=== PATIENT | female | born 1950 | race Caucasian/White ===

== ENCOUNTER 2018-01-03 08:00 | Outpatient (CLI) | payer OTHER, MEDICARE ==
[2018-01-03 12:34] LABS: BASOPHILS # (AUTO) 0.1 10^3/uL (0.0-0.1); BASOPHILS % (AUTO) 0.6 %; EOSINOPHILS # (AUTO) 0.2 10^3/uL (0.0-0.7); EOSINOPHILS % (AUTO) 2.1 %; HGB - HEMOGLOBIN 13.2 g/dL (12.0-16.0); LYMPHOCYTES # (AUTO) 2.9 10^3/uL (1.5-3.5); LYMPHOCYTES % (AUTO) 28.3 %; MEAN CORPUSCULAR HGB CONC 33.6 g/dL (32.0-36.0); MEAN CORPUSCULAR VOLUME 92.2 fL (81.0-99.0); MEAN PLATELET VOLUME 8.9 fL (7.9-10.8); MONOCYTES # (AUTO) 0.5 10^3/uL (0.0-1.0); MONOCYTES % (AUTO) 5.3 %; NEUTROPHILS # (AUTO) 6.5 10^3/uL (1.5-6.6); NEUTROPHILS % (AUTO) 63.7 %; PLT - PLATELET COUNT 284 10^3/uL (130-450); RED BLOOD COUNT 4.26 10^6/uL (4.20-5.40); WHITE BLOOD COUNT 10.3 x10^3/uL (4.8-10.8)
[2018-01-03 12:57] LABS: ALBUMIN 3.9 g/dL (3.2-5.5); ALBUMIN/GLOBULIN RATIO 1.1 (1.0-2.2); ALKALINE PHOSPHATASE 79 IU/L (42-121); ALT ALANINE AMINOTRANSFERASE 22 IU/L (10-60); AST ASPARTATE AMINOTRANSFERASE 18 IU/L (10-42); BILIRUBIN,TOTAL 0.3 mg/dL (0.2-1.0); BUN - BLOOD UREA NITROGEN 19 mg/dL (6-20); CARBON DIOXIDE - CO2 27 mmol/L (21-32); CHLORIDE 101 mmol/L (101-111); CHOL/HDL RATIO 4.4 (<4.4); CHOLESTEROL 235 mg/dL; CREATININE 0.6 mg/dL (0.4-1.0); GFR - MDRD 100 (>89); GLUCOSE 106 mg/dL (70-100); HDL CHOLESTEROL 54 mg/dL; LDL CHOLESTEROL,CALCULATED 153 mg/dL; LDL/HDL RATIO 2.8 (<4.4); SODIUM 138 mmol/L (135-145); TOTAL PROTEIN 7.4 g/dL (6.7-8.2); VLDL CHOLESTEROL 28 mg/dL
== END 2018-01-03 08:01 | disposition home or self-care (01) ==
LOC: LAB.WCP 08:00
PROVIDERS: ATTEND Family Medicine
DX: I10 Essential (primary) hypertension (principal); E78.5 Hyperlipidemia, unspecified
CPT/HCPCS: 36415; 80053; 80061; 83721; 85025

== ENCOUNTER 2018-04-19 08:00 | Outpatient (CLI) | payer OTHER, MEDICARE ==
[2018-04-19 12:32] LABS: BASOPHILS # (AUTO) 0.1 10^3/uL (0.0-0.1); BASOPHILS % (AUTO) 0.6 %; EOSINOPHILS # (AUTO) 0.3 10^3/uL (0.0-0.7); HGB - HEMOGLOBIN 12.8 g/dL (12.0-16.0); LYMPHOCYTES # (AUTO) 2.4 10^3/uL (1.5-3.5); LYMPHOCYTES % (AUTO) 26.2 %; MEAN CORPUSCULAR HEMOGLOBIN 30.8 pg (27.0-31.0); MEAN CORPUSCULAR HGB CONC 32.7 g/dL (32.0-36.0); MEAN CORPUSCULAR VOLUME 94.3 fL (81.0-99.0); MONOCYTES # (AUTO) 0.5 10^3/uL (0.0-1.0); MONOCYTES % (AUTO) 5.6 %; NEUTROPHILS # (AUTO) 5.8 10^3/uL (1.5-6.6); NEUTROPHILS % (AUTO) 64.6 %; PLT - PLATELET COUNT 290 10^3/uL (130-450); RED BLOOD COUNT 4.14 10^6/uL (4.20-5.40); RED CELL DISTRIBUTION WIDTH 13.5 % (12.0-15.0)
[2018-04-19 13:19] LABS: ALBUMIN 3.6 g/dL (3.2-5.5); ALBUMIN/GLOBULIN RATIO 1.1 (1.0-2.2); ALKALINE PHOSPHATASE 68 IU/L (42-121); ALT ALANINE AMINOTRANSFERASE 19 IU/L (10-60); AST ASPARTATE AMINOTRANSFERASE 14 IU/L (10-42); BILIRUBIN,TOTAL 0.9 mg/dL (0.2-1.0); BUN - BLOOD UREA NITROGEN 12 mg/dL (6-20); CALCIUM 8.6 mg/dL (8.5-10.3); CARBON DIOXIDE - CO2 29 mmol/L (21-32); CHLORIDE 105 mmol/L (101-111); CHOL/HDL RATIO 4.7 (<4.4); CHOLESTEROL 191 mg/dL; CREATININE 0.6 mg/dL (0.4-1.0); GFR - MDRD 100 (>89); GLUCOSE 105 mg/dL (70-100); HDL CHOLESTEROL 41 mg/dL; LDL CHOLESTEROL,CALCULATED 126 mg/dL; LDL/HDL RATIO 3.1 (<4.4); SODIUM 140 mmol/L (135-145); TOTAL PROTEIN 6.9 g/dL (6.7-8.2); VLDL CHOLESTEROL 24 mg/dL
== END 2018-04-19 23:59 | disposition home or self-care (01) ==
LOC: LAB.WCP 08:00
PROVIDERS: ATTEND Family Medicine
DX: E78.5 Hyperlipidemia, unspecified (principal); I10 Essential (primary) hypertension
CPT/HCPCS: 36415; 80053; 80061; 83721; 85025

== ENCOUNTER 2018-08-09 07:11 | Outpatient (CLI) | payer OTHER, MEDICARE ==
[2018-08-09 12:48] LABS: ALBUMIN/GLOBULIN RATIO 1.3 (1.0-2.2); ALKALINE PHOSPHATASE 80 IU/L (42-121); ALT ALANINE AMINOTRANSFERASE 21 IU/L (10-60); AST ASPARTATE AMINOTRANSFERASE 18 IU/L (10-42); BUN - BLOOD UREA NITROGEN 12 mg/dL (6-20); CALCIUM 9.3 mg/dL (8.5-10.3); CARBON DIOXIDE - CO2 28 mmol/L (21-32); CHLORIDE 101 mmol/L (101-111); CHOL/HDL RATIO 4.9 (<4.4); CHOLESTEROL 231 mg/dL; CREATININE 0.5 mg/dL (0.4-1.0); GFR - MDRD 123 (>89); GLUCOSE 103 mg/dL (70-100); HDL CHOLESTEROL 47 mg/dL; LDL CHOLESTEROL,CALCULATED 161 mg/dL; LDL/HDL RATIO 3.4 (<4.4); SODIUM 137 mmol/L (135-145); TOTAL PROTEIN 7.2 g/dL (6.7-8.2); VLDL CHOLESTEROL 23 mg/dL
[2018-08-09 12:53] LABS: BASOPHILS # (AUTO) 0.1 10^3/uL (0.0-0.1); BASOPHILS % (AUTO) 0.8 %; EOSINOPHILS # (AUTO) 0.2 10^3/uL (0.0-0.7); EOSINOPHILS % (AUTO) 2.7 %; HGB - HEMOGLOBIN 13.1 g/dL (12.0-16.0); LYMPHOCYTES # (AUTO) 2.2 10^3/uL (1.5-3.5); LYMPHOCYTES % (AUTO) 26.4 %; MEAN CORPUSCULAR HEMOGLOBIN 30.8 pg (27.0-31.0); MEAN CORPUSCULAR HGB CONC 33.8 g/dL (32.0-36.0); MEAN CORPUSCULAR VOLUME 91.3 fL (81.0-99.0); MONOCYTES # (AUTO) 0.4 10^3/uL (0.0-1.0); MONOCYTES % (AUTO) 5.4 %; NEUTROPHILS # (AUTO) 5.4 10^3/uL (1.5-6.6); NEUTROPHILS % (AUTO) 64.7 %; PLT - PLATELET COUNT 292 10^3/uL (130-450); RED BLOOD COUNT 4.26 10^6/uL (4.20-5.40); RED CELL DISTRIBUTION WIDTH 13.4 % (12.0-15.0); WHITE BLOOD COUNT 8.4 x10^3/uL (4.8-10.8)
== END 2018-08-09 07:12 | disposition home or self-care (01) ==
LOC: LAB.WCP 07:11
PROVIDERS: ATTEND Family Medicine
DX: I10 Essential (primary) hypertension (principal); E78.5 Hyperlipidemia, unspecified
CPT/HCPCS: 36415; 80053; 80061; 83721; 85025

== ENCOUNTER 2018-11-04 08:00 | Outpatient (CLI) | payer MEDICARE, OTHER ==
[2018-11-06 14:00] LABS: CLARITY,URINE CLOUDY (CLEAR); LEUKOCYTE ESTERASE, URINE NEGATIVE (NEGATIVE); NITRITE,URINE NEGATIVE (NEGATIVE); OCCULT BLOOD,URINE NEGATIVE (NEGATIVE); PH,URINE 5.5 PH (5.0-7.5); PROTEIN,URINE NEGATIVE (NEGATIVE); UROBILINOGEN,URINE 0.2 (NORMAL) E.U./dL (NORMAL)
[2018-11-06 14:01] LABS: AMORPHOUS SEDIMENT,UR Marked /LPF; BACTERIA,URINE None Seen /HPF (None Seen); BILIRUBIN,URINE NEGATIVE (NEGATIVE); GLUCOSE, URINE (UA) NEGATIVE (NEGATIVE); KETONES,URINE (UA) NEGATIVE (NEGATIVE); RBC,URINE 0-5 /HPF (0-5); SQUAMOUS EPITHELIAL CELL,UR FEW Squamous (<= Few)
== END 2018-11-04 23:59 ==
LOC: LAB.R 08:00
PROVIDERS: ATTEND Obstetrics & Gynecology
DX: N95.0 Postmenopausal bleeding (principal); R30.0 Dysuria
CPT/HCPCS: 81001; 87086

== ENCOUNTER 2018-11-06 08:00 | Outpatient (CLI) | payer MEDICARE, OTHER ==
[2018-11-06 12:18] LABS: BASOPHILS % (AUTO) 0.5 %; EOSINOPHILS # (AUTO) 0.2 10^3/uL (0.0-0.7); EOSINOPHILS % (AUTO) 2.7 %; HGB - HEMOGLOBIN 12.8 g/dL (12.0-16.0); LYMPHOCYTES # (AUTO) 2.5 10^3/uL (1.5-3.5); LYMPHOCYTES % (AUTO) 27.8 %; MEAN CORPUSCULAR HEMOGLOBIN 31.4 pg (27.0-31.0); MEAN CORPUSCULAR VOLUME 92.3 fL (81.0-99.0); MEAN PLATELET VOLUME 8.9 fL (7.9-10.8); MONOCYTES # (AUTO) 0.5 10^3/uL (0.0-1.0); MONOCYTES % (AUTO) 5.4 %; NEUTROPHILS # (AUTO) 5.7 10^3/uL (1.5-6.6); NEUTROPHILS % (AUTO) 63.6 %; PLT - PLATELET COUNT 265 10^3/uL (130-450); RED BLOOD COUNT 4.09 10^6/uL (4.20-5.40); RED CELL DISTRIBUTION WIDTH 13.8 % (12.0-15.0)
[2018-11-06 12:57] LABS: HB2 TOTAL 13.2 g/dL; HEMOGLOBIN A1C 0.65 g/dL; HEMOGLOBIN A1C % 6.7 % (4.6-6.2)
[2018-11-06 13:05] LABS: THYROID STIMULATING HORMONE 1.57 uIU/mL (0.34-5.60)
[2018-11-06 13:07] LABS: FREE T4 (FREE THYROXINE) 0.89 ng/dL (0.58-1.64)
== END 2018-11-06 23:59 ==
LOC: LAB.WCP 08:00
PROVIDERS: ATTEND Obstetrics & Gynecology
DX: E66.9 Obesity, unspecified (principal); E04.9 Nontoxic goiter, unspecified; N95.0 Postmenopausal bleeding
CPT/HCPCS: 36415; 82947; 83036; 84439; 84443; 85025

== ENCOUNTER 2018-11-27 15:24 | Outpatient (CLI) | payer MEDICARE, OTHER ==
--- NOTE | 2018-11-28 09:04 | Ultrasound Report ---
Reason: POSTMENOPAUSAL VAGINAL BLEEDING Procedure Date: 11/27/2018 Accession Number: [id number] / [id number] Procedure: US - Pelvic w/Transvaginal CPT Code: FULL RESULT: EXAM: PELVIC ULTRASOUND EXAM DATE: 11/27/2018 05:17 PM. CLINICAL HISTORY: Postmenopausal vaginal bleeding. COMPARISON: None. TECHNIQUE: Realtime transabdominal pelvic scan performed to identify the uterus and adnexa and as an overview of other pelvic structures, followed by transvaginal scan to provide greater detail of the uterus and adnexa, with static image documentation. FINDINGS: Uterus: 7.3 x 3.2 x 4.9 cm, volume 60.3 cc. Anteverted position. Normal overall size and echotexture. Masses: None. Endometrium: 6.2 mm. Mildly thickened for postmenopausal status. Cervix: Unremarkable. Right Ovary: Not seen transabdominally or transvaginally. Left Ovary: 1.5 x 0.7 x 1.0 cm, volume 0.56 cc. Normal echotexture and blood flow. Free Fluid: None. Other: None. IMPRESSION: 1. Mild thickening of the endometrial canal at 6 mm for a postmenopausal state. 2. Nonvisualization of the right ovary. RADIA
== END 2018-11-27 15:25 | disposition home or self-care (01) ==
LOC: DI 15:24
PROVIDERS: ATTEND Obstetrics & Gynecology
DX: N95.0 Postmenopausal bleeding (principal); R93.89 Abnormal findings on diagnostic imaging of other specified body structures
CPT/HCPCS: 76830; 76856

== ENCOUNTER 2018-11-29 07:30 | Outpatient (CLI) | payer MEDICARE, OTHER ==
--- NOTE | 2018-11-29 17:02 | Mammography Report ---
Reason: Procedure Date: 11/29/2018 Accession Number: [id number] / [id number] Procedure: SHAWN - Screening Mammo w/Christopher CPT Code: FULL RESULT: EXAM: Screening Mammo w/Christopher DATE: 11/29/2018 8:07 AM CLINICAL HISTORY: Routine screening. No personal history of breast cancer. Family history breast cancer in brother at age 30. TECHNIQUE: Bilateral CC and MLO views were obtained. COMPARISON: 04/18/2016 through 02/17/2011. FINDINGS: The breasts demonstrate diffuse fatty replacement bilaterally. Right breast: There is a 9 mm oval mass posterior inferior right breast either within the dermis or near the skin surface, 6:00 9 cm from nipple. There are no suspicious calcifications or areas of distortion. Left breast: There are no suspicious masses, calcifications or areas of distortion. IMPRESSION: Incomplete examination RECOMMENDATION: Right breast: 9 mm oval mass within or near the posterior inferior skin at 6:00, 9 cm from nipple. Incomplete. BI-RADS Category 0. Targeted ultrasound is recommended. Left breast: Negative. BI-RADS Category 1. Recommend annual screening mammography. Note: Given family history of breast cancer in a male relative, formal breast cancer risk assessment should be considered. BI-RADS CATEGORY 0: Incomplete examination STANDARD QUALIFYING STATEMENTS: 1. This examination was not reviewed with the aid of Computer-Aided Detection (CAD). 2. A negative or benign imaging report should not preclude biopsy if clinically suspicious findings are present. 3. Dense breasts may obscure an underlying neoplasm. 4. This examination was reviewed with the aid of 3D breast imaging (tomosynthesis).
== END 2018-11-29 07:31 | disposition home or self-care (01) ==
LOC: DI 07:30
DX: Z12.31 Encounter for screening mammogram for malignant neoplasm of breast (principal); R92.8 Other abnormal and inconclusive findings on diagnostic imaging of breast; Z80.3 Family history of malignant neoplasm of breast
CPT/HCPCS: 77063; 77067

== ENCOUNTER 2018-12-05 07:18 | Outpatient (CLI) | payer MEDICARE, OTHER ==
[2018-12-05 13:13] LABS: BASOPHILS # (AUTO) 0.2 10^3/uL (0.0-0.1); BASOPHILS % (AUTO) 1.6 %; EOSINOPHILS # (AUTO) 0.5 10^3/uL (0.0-0.7); EOSINOPHILS % (AUTO) 4.8 %; HGB - HEMOGLOBIN 13.5 g/dL (12.0-16.0); LYMPHOCYTES # (AUTO) 1.9 10^3/uL (1.5-3.5); LYMPHOCYTES % (AUTO) 19.8 %; MEAN CORPUSCULAR HEMOGLOBIN 31.2 pg (27.0-31.0); MEAN CORPUSCULAR HGB CONC 34.8 g/dL (32.0-36.0); MEAN CORPUSCULAR VOLUME 89.7 fL (81.0-99.0); MEAN PLATELET VOLUME 8.8 fL (7.9-10.8); MONOCYTES # (AUTO) 0.5 10^3/uL (0.0-1.0); MONOCYTES % (AUTO) 4.8 %; NEUTROPHILS # (AUTO) 6.7 10^3/uL (1.5-6.6); PLT - PLATELET COUNT 299 10^3/uL (130-450); RED BLOOD COUNT 4.33 10^6/uL (4.20-5.40); RED CELL DISTRIBUTION WIDTH 13.2 % (12.0-15.0); WHITE BLOOD COUNT 9.7 x10^3/uL (4.8-10.8)
[2018-12-05 14:10] LABS: ALBUMIN 3.9 g/dL (3.2-5.5); ALBUMIN/GLOBULIN RATIO 1.1 (1.0-2.2); ALKALINE PHOSPHATASE 70 IU/L (42-121); ALT ALANINE AMINOTRANSFERASE 22 IU/L (10-60); AST ASPARTATE AMINOTRANSFERASE 15 IU/L (10-42); BILIRUBIN,TOTAL 0.9 mg/dL (0.2-1.0); BUN - BLOOD UREA NITROGEN 14 mg/dL (6-20); CALCIUM 8.9 mg/dL (8.5-10.3); CARBON DIOXIDE - CO2 25 mmol/L (21-32); CHLORIDE 104 mmol/L (101-111); CHOL/HDL RATIO 4.7 (<4.4); CHOLESTEROL 206 mg/dL; CREATININE 0.6 mg/dL (0.4-1.0); GFR - MDRD 99 (>89); GLUCOSE 93 mg/dL (70-100); HDL CHOLESTEROL 44 mg/dL; LDL CHOLESTEROL,CALCULATED 145 mg/dL; LDL/HDL RATIO 3.3 (<4.4); SODIUM 136 mmol/L (135-145); TOTAL PROTEIN 7.4 g/dL (6.7-8.2); VLDL CHOLESTEROL 17 mg/dL
== END 2018-12-05 07:19 | disposition home or self-care (01) ==
LOC: LAB.WCP 07:18
PROVIDERS: ATTEND Family Medicine
DX: I10 Essential (primary) hypertension (principal); E78.5 Hyperlipidemia, unspecified
CPT/HCPCS: 36415; 80053; 80061; 83721; 85025

== ENCOUNTER 2018-12-11 12:31 | Outpatient (CLI) | payer MEDICARE, OTHER ==
--- NOTE | 2018-12-11 14:01 | Ultrasound Report ---
Reason: ABN MAMMO - RT SPEC VIEW US Procedure Date: 12/11/2018 Accession Number: [id number] / [id number] Procedure: US - Breast Unilateral Limited CPT Code: FULL RESULT: EXAM: Breast Unilateral Limited DATE: 12/11/2018 1:08 PM CLINICAL HISTORY: ABN MAMMO - RT SPEC VIEW US COMPARISON: None. TECHNIQUE: Targeted ultrasound was performed of the right breast in the area of clinical concern at 12 o'clock and 9 cm distance from the nipple. Color Doppler was employed as appropriate. FINDINGS: A 0.6 x 0.7 cm sebaceous cyst is identified with in the skin at the location of interest. There is increased through transmission and no internal vascularity by color Doppler and finding resides within the dermal layer with physical examination clearly congruent. The finding corresponds to the mammographic abnormality. IMPRESSION: Benign findings RECOMMENDATION: Recommend routine annual Screening mammography unless otherwise clinically indicated. BIRADS CATEGORY 2: Benign findings RADIA
== END 2018-12-11 12:32 | disposition home or self-care (01) ==
LOC: DI 12:31
PROVIDERS: ATTEND Family Medicine
DX: N63.10 Unspecified lump in the right breast, unspecified quadrant (principal); R92.8 Other abnormal and inconclusive findings on diagnostic imaging of breast
CPT/HCPCS: 76642

== ENCOUNTER 2018-12-31 09:55 | Outpatient (CLI) | payer MEDICARE, OTHER ==
[2018-12-31 10:15] LABS: BASOPHILS # (AUTO) 0.1 10^3/uL (0.0-0.1); BASOPHILS % (AUTO) 0.6 %; EOSINOPHILS # (AUTO) 0.6 10^3/uL (0.0-0.7); EOSINOPHILS % (AUTO) 5.4 %; HGB - HEMOGLOBIN 13.6 g/dL (12.0-16.0); LYMPHOCYTES # (AUTO) 2.5 10^3/uL (1.5-3.5); LYMPHOCYTES % (AUTO) 23.5 %; MEAN CORPUSCULAR HEMOGLOBIN 31.2 pg (27.0-31.0); MEAN CORPUSCULAR HGB CONC 34.4 g/dL (32.0-36.0); MEAN CORPUSCULAR VOLUME 90.7 fL (81.0-99.0); MEAN PLATELET VOLUME 8.3 fL (7.9-10.8); MONOCYTES # (AUTO) 0.5 10^3/uL (0.0-1.0); MONOCYTES % (AUTO) 4.5 %; NEUTROPHILS # (AUTO) 6.9 10^3/uL (1.5-6.6); PLT - PLATELET COUNT 297 10^3/uL (130-450); RED BLOOD COUNT 4.35 10^6/uL (4.20-5.40); RED CELL DISTRIBUTION WIDTH 12.7 % (12.0-15.0); WHITE BLOOD COUNT 10.5 x10^3/uL (4.8-10.8)
[2018-12-31 10:26] LABS: ALBUMIN 4.1 g/dL (3.2-5.5); ALBUMIN/GLOBULIN RATIO 1.1 (1.0-2.2); BILIRUBIN,TOTAL 0.8 mg/dL (0.2-1.0); CALCIUM 9.4 mg/dL (8.5-10.3); CREATININE 0.8 mg/dL (0.4-1.0); TOTAL PROTEIN 7.8 g/dL (6.7-8.2)
== END 2018-12-31 09:56 | disposition home or self-care (01) ==
LOC: LAB 09:55
PROVIDERS: ATTEND Obstetrics & Gynecology
DX: Z01.818 Encounter for other preprocedural examination (principal); N95.0 Postmenopausal bleeding
CPT/HCPCS: 36415; 80053; 85025; 86850; 86900; 86901; 93005

== ENCOUNTER 2019-01-01 07:50 | Day surgery (SDC) | payer OTHER, MEDICARE ==
[2019-01-01] MEDS ORDERED: LACTATED RINGERS 1,000 ML IV ONE (07:54)
--- NOTE | 2019-01-01 08:06 | ANESTHESIA ---
Pre-Anesthesia VS, & Labs - Diagnosis Post menopausal bleeding - Procedure D and C, Myosure hysteroscopy Height 5 ft 6 in - NPO Other (cOFFEE AT 0430) - Is Patient ?: No - Lab Results Lab results reviewed: Yes Home Medications and Allergies Home Medications: Ambulatory Orders Albuterol Sulfate [Proair Hfa Inhaler] 2 puffs INH Q4H PRN 12/23/18 Cholecalciferol (Vitamin D3) [Vitamin D3] 4,000 unit PO DAILY 12/23/18 Multivitamin [Multiple Vitamins] 1 each PO DAILY 12/23/18 Aspirin [Adult Low Dose Aspirin EC] 81 mg PO DAILY 02/29/16 Felodipine [Felodipine ER] 10 mg PO DAILY 02/29/16 Lisinopril 10 mg PO DAILY 02/29/16 Albuterol Sulfate [Proair Hfa Inhaler] 2 puffs INH Q4H PRN 12/23/18 Cholecalciferol (Vitamin D3) [Vitamin D3] 4,000 unit PO DAILY 12/23/18 Multivitamin [Multiple Vitamins] 1 each PO DAILY 12/23/18 Allergies/Adverse Reactions: Allergies Allergy/AdvReac Type Severity Reaction Status Date / Time No Known Drug Allergies Allergy Verified 02/29/16 15:02 Anes History & Medical History - Anesthetic History Anesthesia Complications: reports: No previous complications Family history of Anesthesia Complications: Denies Family history of Malignant Hyperthermia: Denies - Medical History Cardiovascular: reports: Hypertension Pulmonary: reports: Asthma (Uses inhaler prn), Other Gastrointestinal: reports: None Urinary: reports: None Neuro: reports: None Musculoskeletal: reports: Osteoarthritis Endocrine/Autoimmune: reports: Type 2 diabetes, Other Blood Disorders: reports: None Skin: reports: None Smoking Status: Former smoker Psychosocial: reports: No issues indicated - Surgical History General: Cholecystectomy, Colonoscopy, EGD, Other Gynecologic: section, Dilation and currettage, Other Exam General: Alert Dental: WNL Mouth Openin Fingerbreadth Neck Mobility: Normal Mallampati classification: III Thyromental Distance: greater than 6 cm Respiratory: Lungs clear Cardiovascular: Regular rate Neurological: Normal speech Mental/Cognitive Status: Alert/Oriented X3 Cognitive Status: Within normal limits Plan Anesthesia Type: General Consent for Procedure(s) Verified and Reviewed: Yes Code Status: Attempt Resuscitation ASA classification: 2-Mild systemic disease Is this case an emergency?: No
[2019-01-01] MEDS ORDERED: LIDOCAINE 1%-EPI 1:100000 30 ML MDV ONE (09:30)
[2019-01-01] MEDS ORDERED: LIDOCAINE MPF 1%-EPI 1:200000 30 ML VIAL SUBQ ONE (09:51)
[2019-01-01] MEDS ORDERED: LIDOCAINE-MPF 2% 5 ML VIAL IM ONE (10:21)
[2019-01-01] MEDS ORDERED: ONDANSETRON 4 MG/2 ML VIAL IVP ONE (10:21)
[2019-01-01] MEDS ORDERED: PROPOFOL 200 MG/20 ML VIAL IVP ONE (10:21)
[2019-01-01] MEDS ORDERED: HYDROmorphone 0.5 MG/0.5 ML SYRINGE IVP PRN (10:22)
[2019-01-01] MEDS ORDERED: oxyCODONE 5 MG TABLET PO PRN (10:22)
[2019-01-01] MEDS ORDERED: ONDANSETRON 4 MG/2 ML VIAL IVP PRN (10:22)
[2019-01-01] MEDS ORDERED: LORazepam 2 MG/ML VIAL IVP PRN (10:22)
[2019-01-01] MEDS ORDERED: KETOROLAC 15 MG/ML VIAL ONE (10:24)
--- NOTE | 2019-01-01 10:26 | OPERATIVE REPORT ---
Operative Report - General Procedure Date: 01/01/19 Planned Procedure: Hysterscopy with D&C Pre-Op Diagnosis: Post menopausel bleeding Procedure Performed: Hysterscopy with D&C Post Op Diagnosis: Endometrial Polyps - Procedure Note Primary Surgeon: Mustapha Ruvalcaba MD FACOG Anesthesia Provider: Garry Martines MD Anesthesia Technique: General LMA Pathology: endocervical currettings Endometrial polyps IV Fluids (mL): 300 Estimated Blood Loss (mL): 5 Indications: Post menopausel bleeding Findings: Uterus sounded to 7 cm Vaginal caliber was quite small at the [place] three endometrial polyps seen in the uterus Complications: None. fluid deficit 270 ml - Other Other Information/Narrative: #[id number]
--- NOTE | 2019-01-01 10:55 | OPERATIVE REPORT ---
DATE OF SERVICE: 01/01/2019 Physician: Mustapha Ruvalcaba MD PREOPERATIVE DIAGNOSIS: 1. Postmenopausal bleeding. POSTOPERATIVE DIAGNOSES 1. Postmenopausal bleeding. 2. Endometrial polyps. PROCEDURE: Hysteroscopy with resection of endometrial polyps. SURGEON: Mustapha Ruvalcaba M.D. ANESTHESIOLOGIST: Dr. Garry Martines M.D. ANESTHESIA: General via LMA. ESTIMATED BLOOD LOSS: Less than 5 mL. IV FLUIDS: 300 mL. FLUID DEFICIT: From the hysteroscopy was 270. FINDINGS: Upon entering the vagina this, the vaginal caliber was quite small at the apex of the vagina. The cervix appeared to be normal. The uterus sounded to 7 cm, and there were three distinct separate polyps noted in the endometrial cavity. One was attached anteriorly, one to the right lateral wall, and one higher up. Both fallopian orifices were seen. DESCRIPTION OF PROCEDURE: Following adequate general anesthesia via LMA, patient was placed in the dorsal lithotomy position in Gonsalo rustrups. She was positioned appropriately. At this point, she was prepped and draped in the usual fashion. A timeout was performed in which the patient was identified as well as concerns addressed. At this point, a speculum was placed in the vagina and was unable to be opened, so a pediatric speculum was finally placed, and was opened. The cervix was visualized, grasped with a single-tooth tenaculum. A Paracervical block with 1% lidocane with Epi. 10 mls total was injected. The uterus was then dilated up to a size 6 mm dilator. At this point, the endocervical canal was sharply curetted. The uterus was then sounded to 7 cm, and then the video hysteroscope was introduced. There were three small polyps noted on the right side of the uterus, one anterior, one posterior, and one from the uterine sidewall. These were all removed with the MyoSure. The bases were trimmed all the way down to the muscle. The endometrial cavity was biopsied as much as possible in all quadrants utilizing the MyoSure. There is no evidence of any bleeding. The patient tolerated this part of the procedure well. At this point, photographs were taken, and the remainder of the endometrial cavity appeared to be free of any polyps or disease. The hysteroscope was removed, the cervix released from the single-tooth tenaculum, and the speculum was also removed. The patient tolerated the procedure well and was taken to recovery in stable condition. Sponge and needle counts were correct. TD: 01/01/2019 10:41 SUSSY
[2019-01-01 11:01] VITALS: BP 147/72
== END 2019-01-01 07:51 | disposition home or self-care (01) ==
LOC: SDS 07:50
PROVIDERS: ATTEND Obstetrics & Gynecology
PROC: 0UDB8ZZ Extraction of Endometrium, Via Natural or Artificial Opening Endoscopic (ICD-10-PCS; 2019-01-01)
PROC: 0UB98ZZ Excision of Uterus, Via Natural or Artificial Opening Endoscopic (ICD-10-PCS; principal; 2019-01-01 09:15)
DX: N95.0 Postmenopausal bleeding (principal); N84.0 Polyp of corpus uteri; I10 Essential (primary) hypertension; J45.909 Unspecified asthma, uncomplicated; E11.9 Type 2 diabetes mellitus without complications; E66.9 Obesity, unspecified; Z87.891 Personal history of nicotine dependence
CPT/HCPCS: 58558; J7120

== ENCOUNTER 2019-01-13 15:54 | Outpatient (CLI) | payer MEDICARE, OTHER ==
--- NOTE | 2019-01-14 09:41 | XRAY Report ---
Reason: KNEE PAIN, LEFT Procedure Date: 01/13/2019 Accession Number: [id number] / [id number] Procedure: WCP - Knee 3 View LT CPT Code: FULL RESULT: EXAM: LEFT KNEE RADIOGRAPHY EXAM DATE: 01/13/2019 04:14 PM. CLINICAL HISTORY: KNEE PAIN, LEFT. COMPARISON: None. TECHNIQUE: 3 views. FINDINGS: Bones: Normal. No fractures or bone lesions. Joints: Osteophyte medial joint space with mild joint space narrowing. Spurring of the tibial spine. Osteophyte patellofemoral compartment with joint space narrowing. Small effusion. Possible loose body posteriorly Soft Tissues: Calcification along the patellar tendon insertion site on the tibia.. No soft tissue swelling. IMPRESSION: Moderate degenerative changes RADIA
== END 2019-01-13 15:55 | disposition home or self-care (01) ==
LOC: DI.WCP 15:54
PROVIDERS: ATTEND Family Medicine
DX: M17.12 Unilateral primary osteoarthritis, left knee (principal)

== ENCOUNTER 2019-01-14 07:44 | Outpatient (CLI) | payer MEDICARE, OTHER ==
[2019-01-14 13:36] LABS: BASOPHILS # (AUTO) 0.1 10^3/uL (0.0-0.1); BASOPHILS % (AUTO) 0.5 %; EOSINOPHILS # (AUTO) 0.3 10^3/uL (0.0-0.7); EOSINOPHILS % (AUTO) 2.8 %; HGB - HEMOGLOBIN 12.7 g/dL (12.0-16.0); LYMPHOCYTES # (AUTO) 2.3 10^3/uL (1.5-3.5); LYMPHOCYTES % (AUTO) 25.3 %; MEAN CORPUSCULAR HEMOGLOBIN 31.1 pg (27.0-31.0); MEAN CORPUSCULAR HGB CONC 33.8 g/dL (32.0-36.0); MEAN PLATELET VOLUME 8.9 fL (7.9-10.8); MONOCYTES # (AUTO) 0.5 10^3/uL (0.0-1.0); MONOCYTES % (AUTO) 5.6 %; NEUTROPHILS % (AUTO) 65.8 %; PLT - PLATELET COUNT 288 10^3/uL (130-450); RED BLOOD COUNT 4.07 10^6/uL (4.20-5.40); WHITE BLOOD COUNT 9.1 x10^3/uL (4.8-10.8)
[2019-01-14 15:57] LABS: ALBUMIN 4.1 g/dL (3.2-5.5); ALBUMIN/GLOBULIN RATIO 1.3 (1.0-2.2); ALKALINE PHOSPHATASE 73 IU/L (42-121); ALT ALANINE AMINOTRANSFERASE 18 IU/L (10-60); AST ASPARTATE AMINOTRANSFERASE 15 IU/L (10-42); BILIRUBIN,TOTAL 0.8 mg/dL (0.2-1.0); BUN - BLOOD UREA NITROGEN 15 mg/dL (6-20); CALCIUM 9.1 mg/dL (8.5-10.3); CARBON DIOXIDE - CO2 27 mmol/L (21-32); CHLORIDE 103 mmol/L (101-111); CHOL/HDL RATIO 4.9 (<4.4); CHOLESTEROL 209 mg/dL; CREATININE 0.5 mg/dL (0.4-1.0); GFR - MDRD 123 (>89); GLUCOSE 99 mg/dL (70-100); HDL CHOLESTEROL 43 mg/dL; LDL CHOLESTEROL,CALCULATED 146 mg/dL; LDL/HDL RATIO 3.4 (<4.4); SODIUM 139 mmol/L (135-145); TOTAL PROTEIN 7.3 g/dL (6.7-8.2); VLDL CHOLESTEROL 20 mg/dL
[2019-01-14 17:45] LABS: HB2 TOTAL 14.3 g/dL; HEMOGLOBIN A1C 0.63 g/dL; HEMOGLOBIN A1C % 6.2 % (4.6-6.2)
== END 2019-01-14 07:45 | disposition home or self-care (01) ==
LOC: LAB.WCP 07:44
PROVIDERS: ATTEND Family Medicine
DX: E11.9 Type 2 diabetes mellitus without complications (principal); E78.5 Hyperlipidemia, unspecified; I10 Essential (primary) hypertension
CPT/HCPCS: 36415; 80053; 80061; 83036; 83721; 85025

== ENCOUNTER 2019-02-11 11:23 | Outpatient (CLI) | payer MEDICARE, OTHER | END 2019-02-11 11:24 | disposition home or self-care (01) | LOC: DI 11:23 | PROVIDERS: ATTEND Family Medicine | DX: R01.1 Cardiac murmur, unspecified (principal) | CPT/HCPCS: 93306 ==

== ENCOUNTER 2019-03-06 08:52 | Outpatient (CLI) | payer MEDICARE, OTHER ==
--- NOTE | 2019-03-06 13:02 | XRAY Report ---
Reason: KNEE PAIN,RIGHT Procedure Date: 03/06/2019 Accession Number: [id number] / [id number] Procedure: WCP - Knee 3 View RT CPT Code: FULL RESULT: EXAM: RIGHT KNEE RADIOGRAPHY EXAM DATE: 03/06/2019 09:16 AM. CLINICAL HISTORY: Knee pain, right. COMPARISON: KNEE 3 VIEW LT 01/13/2019 3:51 PM. TECHNIQUE: 3 views. FINDINGS: Bones: Normal. No fractures or bone lesions. Joints: Nascent degenerative spurring noted of the superior patella and tibial spines. No effusion. Soft Tissues: Normal. No soft tissue swelling. IMPRESSION: Normal knee radiography for age. RADIA
== END 2019-03-06 08:53 | disposition home or self-care (01) ==
LOC: DI.WCP 08:52
PROVIDERS: ATTEND Family Medicine
DX: M25.561 Pain in right knee (principal)

== ENCOUNTER 2019-09-29 07:03 | Outpatient (CLI) | payer MEDICARE, OTHER ==
[2019-09-29 11:07] LABS: ALBUMIN 3.9 g/dL (3.2-5.5); ALBUMIN/GLOBULIN RATIO 1.1 (1.0-2.2); ALKALINE PHOSPHATASE 76 IU/L (42-121); ALT ALANINE AMINOTRANSFERASE 17 IU/L (10-60); AST ASPARTATE AMINOTRANSFERASE 14 IU/L (10-42); BILIRUBIN,TOTAL 0.8 mg/dL (0.2-1.0); BUN - BLOOD UREA NITROGEN 17 mg/dL (6-20); CALCIUM 9.2 mg/dL (8.5-10.3); CARBON DIOXIDE - CO2 29 mmol/L (21-32); CHLORIDE 103 mmol/L (101-111); CHOL/HDL RATIO 4.7 (<4.4); CHOLESTEROL 215 mg/dL; CREATININE 0.6 mg/dL (0.4-1.0); GFR - MDRD 99 (>89); GLUCOSE 116 mg/dL (70-100); HB2 TOTAL 13.3 g/dL; HDL CHOLESTEROL 46 mg/dL; HEMOGLOBIN A1C 0.69 g/dL; HEMOGLOBIN A1C % 6.9 % (4.6-6.2); LDL CHOLESTEROL,CALCULATED 145 mg/dL; LDL/HDL RATIO 3.2 (<4.4); SODIUM 139 mmol/L (135-145); TOTAL PROTEIN 7.3 g/dL (6.7-8.2); VLDL CHOLESTEROL 24 mg/dL
--- NOTE | 2019-09-29 17:26 | XRAY Report ---
Reason: LEFT KNEE PAIN FOR OVER 5 YEARS, RECENTLY WORSENED Procedure Date: 09/29/2019 Accession Number: [id number] / [id number] Procedure: XRS - Knee 3 View LT CPT Code: Final Report FULL RESULT: EXAM: LEFT KNEE RADIOGRAPHY EXAM DATE: 09/29/2019 07:26 AM. CLINICAL HISTORY: Left knee pain for over 5 years. Recently worsened. COMPARISON: KNEE 3 VIEW LT 01/13/2019 3:51 PM. TECHNIQUE: 3 views. FINDINGS: Bones: Normal. No fractures or bone lesions. Joints: Persistent spurring, narrowing, and sclerosis of the medial compartment. Persistent mild patellar spurring. No effusion. No subluxations. Soft Tissues: Unremarkable. IMPRESSION: Stable osteoarthritis, mainly medial compartment. RADIA
== END 2019-09-29 07:04 | disposition home or self-care (01) ==
LOC: DI.S 07:03
PROVIDERS: ATTEND Internal Medicine
DX: M17.12 Unilateral primary osteoarthritis, left knee (principal); E78.5 Hyperlipidemia, unspecified; R73.02 Impaired glucose tolerance (oral); L85.3 Xerosis cutis
CPT/HCPCS: 36415; 80053; 80061; 83036; 83721; 84443

== ENCOUNTER 2019-12-17 08:31 | Day surgery (SDC) | payer MEDICARE, OTHER ==
[2019-12-17] MEDS ORDERED: LACTATED RINGERS 1,000 ML IV ONE (08:40)
--- NOTE | 2019-12-17 09:04 | ANESTHESIA ---
Pre-Anesthesia VS, & Labs - Diagnosis screening - Procedure colonoscopy Vital Signs: Temp Pulse Resp BP Pulse Ox 36.5 C 81 16 95 12/17/19 08:40 12/17/19 08:40 12/17/19 08:40 12/17/19 08:40 Height 5 ft 5 in Weight (kg) 111.5 kg - NPO >8 hours Last Fluid Intake: last of prep 0300 - Is Patient ?: No Home Medications and Allergies Home Medications: Ambulatory Orders Simvastatin 10 mg PO QPM 12/12/19 clonazePAM [Clonazepam] 0.5 mg PO TID PRN 12/12/19 metFORMIN [Glucophage] 500 mg PO BIDWM 12/12/19 Aspirin [Adult Low Dose Aspirin EC] 81 mg PO DAILY 02/29/16 Felodipine [Felodipine ER] 10 mg PO DAILY 02/29/16 lisinopriL [Lisinopril] 10 mg PO DAILY 02/29/16 Albuterol Sulfate [Proair Hfa Inhaler] 2 puffs INH Q4H PRN 12/23/18 Cholecalciferol (Vitamin D3) [Vitamin D3] 4,000 unit PO DAILY 12/23/18 Multivitamin [Multiple Vitamins] 1 each PO DAILY 12/23/18 Simvastatin 10 mg PO QPM 12/12/19 clonazePAM [Clonazepam] 0.5 mg PO TID PRN 12/12/19 metFORMIN [Glucophage] 500 mg PO BIDWM 12/12/19 Allergies/Adverse Reactions: Allergies Allergy/AdvReac Type Severity Reaction Status Date / Time No Known Drug Allergies Allergy Verified 02/29/16 15:02 Anes History & Medical History - Anesthetic History Anesthesia Complications: reports: No previous complications Family history of Anesthesia Complications: Denies Family history of Malignant Hyperthermia: Denies - Medical History Cardiovascular: reports: Hypertension, High cholesterol, Murmur Pulmonary: reports: None Gastrointestinal: reports: None Urinary: reports: Nocturia Neuro: reports: None Musculoskeletal: reports: Osteoarthritis Endocrine/Autoimmune: reports: Other Blood Disorders: reports: None Skin: reports: None Smoking Status: Former smoker - Surgical History General: Cholecystectomy, Colonoscopy, EGD, Other Gynecologic: section, Dilation and currettage, Other Exam General: Alert, Oriented x3, Cooperative Dental: WNL Mouth Openin Fingerbreadth Neck Mobility: Normal Mallampati classification: II Thyromental Distance: 4-6 cm Respiratory: Lungs clear, Normal breath sounds, No respiratory distress, Decreased breath sounds, Other (occasional "lisinopril" cough) Cardiovascular: Regular rate (hypertensive this AM) Neurological: Normal speech Mental/Cognitive Status: Alert/Oriented X3, Normal for patient Cognitive Status: Within normal limits Plan Anesthesia Type: MAC Consent for Procedure(s) Verified and Reviewed: Yes Code Status: Attempt Resuscitation ASA classification: 2-Mild systemic disease Is this case an emergency?: No
[2019-12-17 10:51] VITALS: BP 171/93
== END 2019-12-17 08:32 | disposition home or self-care (01) ==
LOC: SDS 08:31
PROVIDERS: ATTEND Surgery
PROC: 0DBM8ZZ Excision of Descending Colon, Via Natural or Artificial Opening Endoscopic (ICD-10-PCS; principal; 2019-12-17 09:45)
DX: Z12.11 Encounter for screening for malignant neoplasm of colon (principal); D12.4 Benign neoplasm of descending colon; K64.8 Other hemorrhoids; E11.9 Type 2 diabetes mellitus without complications; J45.909 Unspecified asthma, uncomplicated; E78.5 Hyperlipidemia, unspecified; I10 Essential (primary) hypertension; K21.9 Gastro-esophageal reflux disease without esophagitis; F41.9 Anxiety disorder, unspecified; F40.240 Claustrophobia; E66.9 Obesity, unspecified; Z68.41 Body mass index [BMI] 40.0-44.9, adult; Z79.84 Long term (current) use of oral hypoglycemic drugs; Z79.82 Long term (current) use of aspirin; Z87.891 Personal history of nicotine dependence
CPT/HCPCS: 45380; J7120

== ENCOUNTER 2020-12-01 11:03 | Outpatient (CLI) | payer MEDICARE, OTHER ==
--- NOTE | 2020-12-01 12:49 | XRAY Report ---
PROCEDURE: Knee 4 View BILAT INDICATIONS: L KNEE PX TECHNIQUE: 4 views of the bilateral knee(s) were acquired. COMPARISON: None. FINDINGS: Bones: No fractures or dislocations. No suspicious bony lesions. There is moderate left and mild r ight periarticular osteophyte formation. Severe left and mild right medial compartment narrowing. Soft tissues: No joint effusion. No suspicious soft tissue calcifications. IMPRESSION: Left greater than right osteoarthritis with associated medial compartment narrowing. Reviewed by: Miguel Murphy MD on 12/01/2020 12:48 PM PST Approved by: Miguel Murphy MD on 12/01/2020 12:48 PM PST Station ID: [id number]
== END 2020-12-01 11:04 | disposition home or self-care (01) ==
LOC: DI.N 11:03
PROVIDERS: ATTEND Family Medicine
DX: M17.0 Bilateral primary osteoarthritis of knee (principal)

== ENCOUNTER 2020-12-21 08:00 | Outpatient (CLI) | payer MEDICARE, OTHER ==
[2020-12-21 12:02] LABS: BASOPHILS # (AUTO) 0.1 10^3/uL (0.0-0.1); BASOPHILS % (AUTO) 0.6 %; EOSINOPHILS # (AUTO) 0.4 10^3/uL (0.0-0.7); EOSINOPHILS % (AUTO) 3.4 %; HCT - HEMATOCRIT 41.4 % (37.0-47.0); HGB - HEMOGLOBIN 13.5 g/dL (12.0-16.0); LYMPHOCYTES # (AUTO) 3.3 10^3/uL (1.5-3.5); LYMPHOCYTES % (AUTO) 30.5 %; MEAN CORPUSCULAR HEMOGLOBIN 30.2 pg (27.0-31.0); MEAN CORPUSCULAR HGB CONC 32.6 g/dL (32.0-36.0); MEAN CORPUSCULAR VOLUME 92.6 fL (81.0-99.0); MEAN PLATELET VOLUME 10.6 fL (7.9-10.8); MONOCYTES # (AUTO) 0.7 10^3/uL (0.0-1.0); MONOCYTES % (AUTO) 6.3 %; NEUTROPHILS # (AUTO) 6.3 10^3/uL (1.5-6.6); NEUTROPHILS % (AUTO) 58.6 %; PLT - PLATELET COUNT 333 10^3/uL (130-450); RED BLOOD COUNT 4.47 10^6/uL (4.20-5.40); RED CELL DISTRIBUTION WIDTH 12.5 % (12.0-15.0); WHITE BLOOD COUNT 10.8 x10^3/uL (4.8-10.8)
[2020-12-21 12:08] LABS: CREATININE,URINE 222.5 mg/dL; MICROALBUM/CREATININE RATIO,UR 20.2 ug/mg (<30.0); MICROALBUMIN,URINE 4.5 mg/dL (0-300.0)
[2020-12-21 12:30] LABS: ALBUMIN 4.2 g/dL (3.2-5.5); ALBUMIN/GLOBULIN RATIO 1.1 (1.0-2.2); ALKALINE PHOSPHATASE 91 IU/L (42-121); ALT ALANINE AMINOTRANSFERASE 23 IU/L (10-60); AST ASPARTATE AMINOTRANSFERASE 17 IU/L (10-42); BUN - BLOOD UREA NITROGEN 15 mg/dL (6-20); CALCIUM 9.5 mg/dL (8.5-10.3); CARBON DIOXIDE - CO2 26 mmol/L (21-32); CHLORIDE 98 mmol/L (101-111); CHOL/HDL RATIO 3.9 (<4.4); CHOLESTEROL 208 mg/dL; CREATININE 0.7 mg/dL (0.4-1.0); GFR - MDRD 83 (>89); GLUCOSE 123 mg/dL (70-100); HDL CHOLESTEROL 54 mg/dL; LDL CHOLESTEROL,CALCULATED 121 mg/dL; LDL/HDL RATIO 2.2 (<4.4); POTASSIUM 4.2 mmol/L (3.5-5.0); SODIUM 136 mmol/L (135-145); TOTAL PROTEIN 7.9 g/dL (6.7-8.2); TRIGLYCERIDES 167 mg/dL; VLDL CHOLESTEROL 33 mg/dL
[2020-12-21 12:38] LABS: ESTIMATED AVERAGE GLUCOSE 157 mg/dL (70-100); HEMOGLOBIN A1c% 7.1 % (4.27-6.07)
== END 2020-12-21 23:59 | disposition home or self-care (01) ==
LOC: LAB.WCP 08:00
PROVIDERS: ATTEND Family Medicine
DX: E11.9 Type 2 diabetes mellitus without complications (principal)
CPT/HCPCS: 36415; 80053; 80061; 82043; 82570; 83036; 83721; 85025

== ENCOUNTER 2021-01-28 08:44 | Outpatient (CLI) | payer MEDICARE, OTHER ==
[2021-01-28] MEDS ORDERED: REGADENOSON 0.4 MG/5 ML SYRINGE IVP ONE (11:26)
[2021-01-28] MEDS ORDERED: AMINOPHYLLINE 500 MG/20 ML VIAL ONE (11:27)
--- NOTE | 2021-01-28 12:19 | CARDIAC PROCEDURE NOTE ---
DATE OF SERVICE: 01/28/2021 Physician: Krupa Haynes MD, [facility] INDICATION: Abnormal EKG. CARDIAC RISK FACTORS: Postmenopausal status, diabetes, hypertension, obesity, hyperlipidemia. DESCRIPTION OF PROCEDURE: After signing informed consent, the patient underwent a Lexiscan pharmaceutical stress test with nuclear myocardial perfusion imaging. RESTING HEART RATE: 75. PEAK HEART RATE: 103. RESTING BLOOD PRESSURE: 172/79. PEAK BLOOD PRESSURE: 192/96. Lexiscan was infused per protocol. The patient developed brief flushing, then jaw pain, chest heaviness and shortness of breath. The symptoms resolved spontaneously in under 1 minute. Oxygen saturation was 95-97% on room air throughout the test. RESTING EKG: Ectopic atrial rhythm, old anteroseptal infarct. EKG AT PEAK: No new ST segment or T-wave changes develop. SUMMARY: 1. Abnormal resting EKG. 2. No new ischemic changes develop by EKG criteria, using pharmacologic stress. 3. The patient did have brief jaw pain and chest pain. 4. Nuclear images were reported separately and showed: Moderately-severe, partially reversible perfusion defect of the anterior wall. The defect improves somewhat with prone imaging, suggesting some of this finding is from breast attenuation. LVEF is normal. 5. This patient's cardiac risk: High. IMPRESSION: Abnormal stress test with resting EKG and nuclear imaging both showing LV anterior wall abnormality. RECOMMENDATIONS: 1. Start daily aspirin. 2. Continue risk factor management. 2. Cardiology referral for a coronary angiogram. cc: Homero Raya DO TD: 01/28/2021 12:18 [facility]
--- NOTE | 2021-01-28 14:52 | Nuclear Medicine Report ---
PROCEDURE: Rest and pharmacological stress perfusion SPECT with gated imaging and ejection fraction INDICATIONS: ABN EKG RADIOPHARMACEUTICAL: mCi Tc-99m Myoview IV at rest and mCi Tc-99m Myoview IV at peak exercis e. [id number]-zzh-aciavmlp was performed. TECHNIQUE: Radiopharmaceutical was injected at peak stress test, and also at rest. SPECT images wer e obtained. SPECT myocardial perfusion images were displayed in short axis, horizontal long axis, an d vertical long axis views. Gated images were reviewed using [employer] software. COMPARISON: None available. FINDINGS: Raw data: There is good myocardial labeling by radiotracer. No significant motion artifacts. Lung- to-heart ratio is 0.24 (normal is less than 0.38 for tetrafosmin tracer). Left ventricle function: Gated images demonstrate normal left ventricle wall thickening. No segment al wall motion abnormality. No transient ischemic dilation; TID is 0.73 (normal less than 1.3). The left ventricle resting end-diastolic volume is normal. Left ventricle stress ejection fraction is g rater than 70%; normal values are above 45%. Myocardial perfusion: There is , ntjhcvob-vh-ahqggh, partially reversible perfusion defect in the an terior wall. On prone imaging, the defect is improved, suggesting breast attenuation and shifting jessica ast artifact. IMPRESSION: 1. Probably normal myocardial perfusion images.There is a large, qkkfocyy-rh-geyprr, partially revers ible perfusion defect in the anterior wall. On prone imaging, the defect is improved. The findings franco ggest breast attenuation and shifting breast artifact. 2. Normal left ventricular volume and systolic function. 3. Please correlate with stress EKG result. PQRS ATTESTATIONS: Measure 322 - Is this imaging test primarily performed on a low-risk surgery patient for preoperative evaluation within 30 days preceding their low-risk non-cardiac surgery? Low-risk surgery is defined as cardiac or myocardial infarction less than 1%, including (but not limited to) endoscopic pr ocedures, superficial procedures, cataract surgery, and excisional breast surgery: Answer: No Measure 323 - Is this imaging test performed primarily for the monitoring of an asymptomatic patient who had percutaneous coronary intervention on the visit date or within 2 years of the visit date? An swer: No Measure 324 - Is this imaging test performed primarily for the initial detection and risk assessment on an asymptomatic, low coronary heart disease patient? Low CHD risk definition = clinicians should consider the maximum number of available patient factors used to estimate risk based on Bono (A TP III criteria), typically age, gender, diabetes, smoking status, and use of blood pressure medicati on, and integrate age appropriate estimates for missing elements, such as LDL or standard blood press ure. Answer: No Reviewed by: Mor Yoon MD on 01/28/2021 2:51 PM PDT Approved by: Mor Yoon MD on 01/28/2021 2:51 PM PDT Station ID: [id number]
== END 2021-01-28 08:45 | disposition home or self-care (01) ==
LOC: DI 08:44
PROVIDERS: ATTEND Family Medicine
DX: R94.31 Abnormal electrocardiogram [ECG] [EKG] (principal)
CPT/HCPCS: 78452; 93017; A9500; J2785

== ENCOUNTER 2021-06-10 07:10 | Outpatient (CLI) | payer MEDICARE, OTHER ==
[2021-06-10 11:48] LABS: BASOPHILS # (AUTO) 0.1 10^3/uL (0.0-0.1); BASOPHILS % (AUTO) 0.6 %; EOSINOPHILS # (AUTO) 0.3 10^3/uL (0.0-0.7); EOSINOPHILS % (AUTO) 3.6 %; HGB - HEMOGLOBIN 12.4 g/dL (12.0-16.0); LYMPHOCYTES # (AUTO) 2.9 10^3/uL (1.5-3.5); LYMPHOCYTES % (AUTO) 30.8 %; MEAN CORPUSCULAR HEMOGLOBIN 30.9 pg (27.0-31.0); MEAN CORPUSCULAR HGB CONC 32.6 g/dL (32.0-36.0); MEAN CORPUSCULAR VOLUME 94.8 fL (81.0-99.0); MEAN PLATELET VOLUME 10.9 fL (7.9-10.8); MONOCYTES # (AUTO) 0.6 10^3/uL (0.0-1.0); MONOCYTES % (AUTO) 6.4 %; NEUTROPHILS # (AUTO) 5.5 10^3/uL (1.5-6.6); NEUTROPHILS % (AUTO) 58.3 %; PLT - PLATELET COUNT 305 10^3/uL (130-450); RED BLOOD COUNT 4.01 10^6/uL (4.20-5.40); RED CELL DISTRIBUTION WIDTH 12.5 % (12.0-15.0); WHITE BLOOD COUNT 9.5 x10^3/uL (4.8-10.8)
[2021-06-10 12:23] LABS: ESTIMATED AVERAGE GLUCOSE 154 mg/dL (70-100)
[2021-06-10 12:26] LABS: ALBUMIN 3.9 g/dL (3.2-5.5); ALBUMIN/GLOBULIN RATIO 1.2 (1.0-2.2); ALKALINE PHOSPHATASE 70 IU/L (42-121); ALT ALANINE AMINOTRANSFERASE 21 IU/L (10-60); AST ASPARTATE AMINOTRANSFERASE 15 IU/L (10-42); BILIRUBIN,TOTAL 0.9 mg/dL (0.2-1.0); BUN - BLOOD UREA NITROGEN 14 mg/dL (6-20); CALCIUM 9.5 mg/dL (8.5-10.3); CARBON DIOXIDE - CO2 29 mmol/L (21-32); CHLORIDE 103 mmol/L (101-111); CHOL/HDL RATIO 2.8 (<4.4); CHOLESTEROL 143 mg/dL; CREATININE 0.5 mg/dL (0.4-1.0); GFR - MDRD 122 (>89); GLUCOSE 131 mg/dL (70-100); HDL CHOLESTEROL 52 mg/dL; LDL CHOLESTEROL,CALCULATED 68 mg/dL; LDL/HDL RATIO 1.3 (<4.4); POTASSIUM 4.4 mmol/L (3.5-5.0); SODIUM 141 mmol/L (135-145); TOTAL PROTEIN 7.1 g/dL (6.7-8.2); TRIGLYCERIDES 117 mg/dL; VLDL CHOLESTEROL 23 mg/dL
[2021-06-10 12:28] LABS: CREATININE,URINE 196.8 mg/dL; MICROALBUM/CREATININE RATIO,UR 5.1 ug/mg (<30.0)
== END 2021-06-10 23:59 | disposition home or self-care (01) ==
LOC: LAB.WCP 07:10
PROVIDERS: ATTEND Family Medicine
DX: I25.10 Atherosclerotic heart disease of native coronary artery without angina pectoris (principal); E11.9 Type 2 diabetes mellitus without complications
CPT/HCPCS: 36415; 80053; 80061; 82043; 82570; 83036; 83721; 85025

== ENCOUNTER 2021-07-13 06:06 | Day surgery (SDC) | payer MEDICARE, OTHER ==
[2021-07-13] MEDS ORDERED: ACETAMINOPHEN 500 MG TABLET PO ONE (06:14)
[2021-07-13] MEDS ORDERED: CELECOXIB 100 MG CAPSULE PO ONE (06:14)
[2021-07-13] MEDS ORDERED: DEXAMETHASONE 10 MG/ML VIAL ONE (06:15)
[2021-07-13] MEDS ORDERED: LACTATED RINGERS 1,000 ML IV ONE (06:28)
[2021-07-13] MEDS ORDERED: PROPOFOL 500 MG/50 ML 500 MG/50 ML VIAL ONE ×3 (07:01→09:14)
[2021-07-13] MEDS ORDERED: BUPIVACAINE 0.25% PF 30 ML VIAL ONE (07:09)
[2021-07-13] MEDS ORDERED: VANCOMYCIN 1 GM VIAL ONE (07:10)
[2021-07-13] MEDS ORDERED: HYDROmorphone 1 MG/ML CARPUJECT IVP PRN (07:11)
[2021-07-13] MEDS ORDERED: DOCUSATE SODIUM 100 MG CAPSULE PO PRN (07:11)
[2021-07-13] MEDS ORDERED: SODIUM CHLORIDE FLUSH 0.9% 10 ML SYRINGE IVP PRN (07:11)
[2021-07-13] MEDS ORDERED: ONDANSETRON 4 MG/2 ML VIAL IVP PRN ×2 (07:11→07:39)
[2021-07-13] MEDS ORDERED: CEFAZOLIN SODIUM IN 0.9 % NACL 2 GM/100 ML BAG IV ONE (07:13)
[2021-07-13] MEDS ORDERED: BUPIVACAINE 0.5% PF 10 ML VIAL ONE (07:18)
[2021-07-13] MEDS ORDERED: TRANEXAMIC ACID 1,000 MG/10 ML VIAL ONE (07:18)
[2021-07-13] MEDS ORDERED: MIDAZOLAM 2 MG/2 ML VIAL ONE (07:27)
[2021-07-13] MEDS ORDERED: fentaNYL 100 MCG/2 ML VIAL IVP PRN (07:39)
[2021-07-13] MEDS ORDERED: HYDROmorphone 0.5 MG/0.5 ML SYRINGE IVP PRN (07:39)
[2021-07-13] MEDS ORDERED: ePHEDrine 50 MG/ML VIAL IVP PRN (07:39)
[2021-07-13] MEDS ORDERED: ATROPINE ABBOJECT 1 MG/10 ML SYRINGE IVP PRN (07:39)
[2021-07-13] MEDS ORDERED: MORPHINE 2 MG/ML CARPUJECT IVP PRN (07:39)
[2021-07-13] MEDS ORDERED: METOCLOPRAMIDE 10 MG/2 ML VIAL IVP PRN (07:39)
[2021-07-13] MEDS ORDERED: NALOXONE 0.4 MG/ML VIAL IVP PRN (07:39)
--- NOTE | 2021-07-13 07:39 | ANESTHESIA ---
Pre-Anesthesia VS, & Labs - Diagnosis L knee OA - Procedure L TKA Vital Signs: Temp Pulse Resp BP Pulse Ox 36.6 C 81 18 178/89 H 95 07/13/21 06:28 07/13/21 06:28 07/13/21 06:28 07/13/21 06:28 07/13/21 06:28 Height: 5 ft 5 in Weight (kg): 114.2 kg Body Mass Index: 41.8 BMI Classification: Morbidly Obese - NPO >8 hours Last Fluid Intake: sips w/AM med - Is Patient ?: No - Lab Results Current Lab Results: Laboratory Tests 07/13/21 07:03: POC Whole Bld Glucose 186 H Lab results reviewed: Yes Home Medications and Allergies Active Medications Acetaminophen (Acetaminophen 500 Mg Tablet) 1,000 mg PO Q6HR MAURICE Alcohol (Ethyl Alcohol 62% Swab Ampule) 1 amp NICOLE BID MAURICE Celecoxib (Celecoxib 100 Mg Capsule) 200 mg PO BID MAURICE Docusate Sodium (Docusate Sodium 100 Mg Capsule) 100 mg PO BID PRN PRN Reason: Constipation Hydromorphone HCl (Hydromorphone 1 Mg/Ml Carpuject) 1 mg IVP Q2HR PRN PRN Reason: Breakthrough Pain Cefazolin Sodium 2 gm/ Sodium (Chloride) 100 mls @ 200 mls/hr IV Q8HR MAURICE Stop: 07/13/21 22:29 Potassium Chloride/Sodium Chloride (Normal Saline 0.9% W/20 Meq Kcl) 1,000 mls @ 100 mls/hr IV .Q10H MAURICE Ondansetron HCl (Ondansetron 4 Mg/2 Ml Vial) 4 mg IVP Q6HR PRN PRN Reason: Nausea / Vomiting Oxycodone HCl (Oxycodone 5 Mg Tablet) 5 mg PO Q6HR PRN PRN Reason: PAIN Sodium Chloride (Sodium Chloride Flush 0.9% 10 Ml Syringe) 10 ml IVP 0100,0900,1700 MAURICE Sodium Chloride (Sodium Chloride Flush 0.9% 10 Ml Syringe) 10 ml IVP PRN PRN PRN Reason: NEEDED PER PROVIDER ORDERS Aspirin [Adult Low Dose Aspirin EC] 81 mg PO DAILY 02/29/16 Felodipine [Felodipine ER] 10 mg PO DAILY 02/29/16 Multivitamin [Multiple Vitamins] 1 each PO DAILY 12/23/18 clonazePAM [Clonazepam] 0.5 mg PO TID PRN 12/12/19 metFORMIN [Glucophage] 500 mg PO BIDWM 12/12/19 Lactobacillus Combination No.4 [Probiotic] 1 each PO DAILY 07/01/21 Losartan [Cozaar] 50 mg PO DAILY 07/01/21 Rosuvastatin Calcium [Crestor] 20 mg PO DAILY 07/01/21 Allergies/Adverse Reactions: Allergies Allergy/AdvReac Type Severity Reaction Status Date / Time No Known Drug Allergies Allergy Verified 06/01/20 21:49 Anes History & Medical History - Anesthetic History Anesthesia Complications: reports: No previous complications Family history of Anesthesia Complications: Denies Family history of Malignant Hyperthermia: Denies - Medical History Cardiovascular: reports: Hypertension, High cholesterol, Murmur Pulmonary: reports: None Gastrointestinal: reports: None Urinary: reports: Nocturia Neuro: reports: None Musculoskeletal: reports: Osteoarthritis Endocrine/Autoimmune: reports: Type 2 diabetes, Other Blood Disorders: reports: None Skin: reports: None Smoking Status: Former smoker - Surgical History General: reports: Cholecystectomy, Colonoscopy, EGD, Other Gynecologic: reports: section, Dilation and currettage, Other Exam General: Alert, Oriented x3, Cooperative Dental: WNL Mouth Openin Fingerbreadth Mallampati classification: IV Thyromental Distance: 4-6 cm Respiratory: Lungs clear, Normal breath sounds, No respiratory distress, Decreased breath sounds Cardiovascular: Regular rate Neurological: Normal speech Mental/Cognitive Status: Alert/Oriented X3, Normal for patient Cognitive Status: Within normal limits Plan Anesthesia Type: Spinal, Adductor Block Regional Block: Per Surgeon's request for Post Op pain control Consent for Procedure(s) Verified and Reviewed: Yes Code Status: Attempt Resuscitation ASA classification: 3-Severe systemic disease Is this case an emergency?: No
[2021-07-13] MEDS ORDERED: LACTATED RINGERS 1,000 ML IV SCH (08:00)
[2021-07-13] MEDS ORDERED: NS W/20 MEQ KCL 1,000 ML IV SCH (08:00)
[2021-07-13] MEDS ORDERED: PHENYLEPHRINE 10 MG/ML VIAL ONE (08:20)
[2021-07-13] MEDS ORDERED: VANCOMYCIN 1 GM VIAL MC ONE (08:30)
[2021-07-13] MEDS ORDERED: HYDROGEN PEROXIDE 3% 473 ML BOTTLE TOP ONE (08:30)
[2021-07-13] MEDS ORDERED: BUPIVACAINE 0.25% PF 30 ML VIAL SUBQ ONE (08:30)
[2021-07-13] MEDS ORDERED: ePHEDrine 50 MG/ML VIAL IVP ONE (08:45)
[2021-07-13] MEDS ORDERED: CELECOXIB 100 MG CAPSULE PO SCH (09:00)
[2021-07-13] MEDS ORDERED: ROPIVACAINE 0.5% PF 20 ML VIAL ONE (09:14)
[2021-07-13] MEDS ORDERED: DEXAMETHASONE 4 MG/ML VIAL ONE (09:15)
[2021-07-13] MEDS ORDERED: PROPOFOL 500 MG/50 ML 1,000 MG/100 ML VIAL ONE (10:15)
[2021-07-13] MEDS ORDERED: PROPOFOL 200 MG/20 ML VIAL IVP ONE (10:20)
--- NOTE | 2021-07-13 10:34 | OPERATIVE REPORT ---
Operative Report - General Procedure Date: 07/13/21 Planned Procedure: Left total knee replacement Pre-Op Diagnosis: Varus osteoarthritis left knee Procedure Performed: Left total knee replacement using [employer]hew bicruciate stabilizing total knee: Antibiotic cement, #6 femoral component, #4 tibial baseplate, 10 mm posterior stabilized tibial bearing, 26 mm biconvex patellar component Post Op Diagnosis: Same as preoperative diagnosis - Procedure Note Primary Surgeon: Edin Terrell MD Secondary Surgeon: Hitesh MOYA Anesthesia Provider: Garrett Quiroz CRNA Anesthesia Technique: Spinal Estimated Blood Loss (mL): 200 Indications: This is a 70-year-old very symptomatic patients with limiting weightbearing pain with activities of daily living. She has tried nonoperative treatment has been documented. She has had progressive symptoms on a chronic basis. She does have joint line tenderness, decreased motion, mild crepitus and abnormal x-rays consistent with loss of medial joint space, varus osteoarthritis left knee. She has had preoperative medical evaluation and has attended joint camp. Findings: She had osteophytes about the tibiofemoral joint, eburnated bone surfaces to the medial compartment, partial thickness loss to the lateral compartment on a focal basis. She also had loss of cartilage to the patellofemoral joint. Menisci and cruciate ligaments were still intact. She had good stability to her left knee Complications: None - Other Other Information/Narrative: The patient was brought to the operating room and was placed in a supine position. She was given a adductor canal block by anesthesia. A pneumatic tourniquet was applied to the proximal left thigh over cast padding. This was a conical shaped Dung thigh tourniquet that was sterile. An adjustable leg gould was placed on the operating room table to facilitate knee flexion of the left knee during surgery. A timeout procedure was performed by the entire operating room team and all were in agreement. A midline longitudinal incision was made with the knee in flexion. A medial parapatellar arthrotomy was made. The anterior horn of medial and lateral menisci were released and part of patellar fat pad was excised. The knee was flexed and the patella was dislocated laterally. A drill hole was made in the intramedullary notch with a 9.5 mm drill. Osteophytes about the proximal tibia and femur had been removed with a rongeur. The distal femoral cutting guide was aligned parallel to the posterior condyles. The intramedullary mary and guide was advanced and the distal femoral guide was stabilized with half pins. The distal 5 degrees valgus cut was made through the distal femoral guide. Next the extra medullary tibial guide was assembled and applied and aligned to the mechanical axis in both sagittal and coronal planes. Tibial referencing was done to allow 2 mm of bone from the most affected side and 9 mm from the least affected side. The tibial guide was stabilized with half pins. Retractors were placed medially and laterally to protect the collateral ligaments and a retractor was placed directly against the posterior bone to sublux the tibia anteriorly. A [employer] precision 8 saw was used to make the tibial proximal cut. The tibial block was removed as a single piece and the menisci were removed as well. The extension gap was assessed with a extension block spacer using a 10 mm spacer and this was found to fit well as well as the 9 mm spacer block with the knee in 90 degrees of flexion. Next the femoral positioning guide was applied and aligned to the epicondylar axis and Chaparro line. This was secured in place with approximately 3 degrees of external rotation. The size of the femur at the anterior lateral trochlea was a #6. Drill holes were made in the 5 and 1 #6 cutting block was inserted and secured. The 5 cuts were made to the captured block using oscillating saw. The flexion gap was assessed with the 10 mm spacer and was found to fit well. The notch was removed with the reamers and box osteotome. The patella was then prepared. A 26 mm biconvex patellar reamer was used. The tibial trial #4 was then applied to the tibia and aligned to the mechanical axis. The drill and punch fin was utilized. Trial reduction was performed with the femoral and tibial components in place. Notch resection was then through the trial component. Pulsatile lavage was performed. A tourniquet was applied during the cementing process. Antibiotic cement was utilized. The components were inserted sequentially: Tibia, femur and lastly patellar component. Excess cement was removed and the knee was placed in extension during the hardening. Dilute Betadine irrigation was performed. The knee had full ran ge of motion, good patellar tracking. There was good stability of the knee in full extension mid flexion and 90 degrees of flexion. There was good alignment of the right knee. The tourniquet had been deflated and had been in place for 38 minutes. Hemostasis was achieved with electrocautery. Vancomycin powder 2 g were inserted in the arthrotomy prior to deep closure. The deep closure was performed with #2 Ethibond proximal and distal to the patella with the knee in 40 degrees of flexion. #1 stratofix suture was then used to close the arthrotomy incision. 2-0 Stratofix was used to close the subcutaneous tissue. 3-0 Monocryl was used to do a subcuticular skin closure. Dermabond was applied to the skin incision. After the Dermabond had hardened, a silver impregnated dressing was applied. She tolerated the procedure well and received 3 g of Ancef intravenously and 2 g of tranexamic acid. A medical assistant cardiology was utilized during the procedure and was found to be necessary component to help with exposure, protection of vital structures and closure.
[2021-07-13] MEDS ORDERED: LACTATED RINGERS 600 ML IV ONE (11:05)
--- NOTE | 2021-07-13 11:59 | PHARMACY PROGRESS NOTE ---
- Best Possible Medication History Admit Date and Time: Processed by: Nursing Medication History completed: Yes (MED REC COMPLETED BY NURSING) As the person ultimately responsible for medication therapy, providers are able to order a medication from an existing home medication list in [facility] via the "Reconcile Routine" prior to Confirmation of that medication by application support lead. Such practice is discouraged except when the physician, in their clinical judgment, deems that a medical need exists for a medication without regard to previous use.
--- NOTE | 2021-07-13 12:14 | XRAY Report ---
PROCEDURE: Knee 2 View LT INDICATIONS: Postop left TKA TECHNIQUE: 2 views of the left knee(s) were acquired. COMPARISON: None. FINDINGS: Bones: Patient is status post left total knee arthroplasty. Alignment of left knee is anatomic. No f ractures or dislocations. No suspicious bony lesions. Soft tissues: Expected postsurgical changes are noted in left knee soft tissue. IMPRESSION: Postop changes from left total knee arthroplasty with anatomic left knee alignment. Reviewed by: Vince Greene MD on 07/13/2021 12:13 PM PDT Approved by: Vince Greene MD on 07/13/2021 12:13 PM PDT Station ID: [id number]
[2021-07-13] MEDS: ACETAMINOPHEN 500 MG TABLET PO SCH ×2 (12:24→19:03)
[2021-07-13] MEDS: oxyCODONE 5 MG TABLET PO PRN ×3 (12:25→19:55)
[2021-07-13] MEDS: ethyl alcohoL 62% SWAB AMPULE NAS SCH ×2 (12:33→21:34)
[2021-07-13] MEDS: SODIUM CHLORIDE FLUSH 0.9% 10 ML SYRINGE IVP SCH ×2 (12:35→17:03)
[2021-07-13] MEDS ORDERED: clonazePAM 0.5 MG TABLET PO PRN (13:36)
--- NOTE | 2021-07-13 13:49 | CONSULTATION NOTE ---
Referring Provider Name of Referring Provider:: Dr. Rogers Consult Date: 07/13/21 Chief Complaint - Chief Complaint Chief Complaint: a little discomfortable on my left knee History of Present Illness - Admitted From Admitted From:: Medical floor - History Obtained From Records Reviewed: [facility] History obtained from: pt Exam Limitations: no - History of Present Illness HPI Comment/Other: This is a 70-years old female with a past medical history significant noted for hypertension, hyperlipidemia, osteoarthritis, diabetic, obese, heart murmur who was just finished Surgery for her left knee total replacement by Orthopedic surgeon. Medical team was consulted for management of patient medical need. Patient report she has no complaints or no pain, she just have a little discomfortable when she tried to move her left knee. She reported she take Metformin for her diabetes. She reported she have history of heart murmur for years. She denies chest pain, palpitation. Routine laboratory test show patient had elevated WBC which is likely reactive to the surgery, glucose 201, patient had a history of diabetic, anion gap 14. Patient is afebrile, patient is hemodynamic stable at this time. History - Past Medical History Cardiovascular: reports: Hypertension, High cholesterol, Murmur Respiratory: reports: None Neuro: reports: None Endocrine/Autoimmune: reports: Type 2 diabetes, Other GI: reports: None : reports: Nocturia HEENT: reports: Chronic vision loss, Other Psych: reports: Anxiety, Panic attacks Musculoskeletal: reports: Osteoarthritis Derm: reports: None MRSA Hx?: No - Past Surgical History General: reports: Cholecystectomy, Colonoscopy, EGD, Other /[employer]ATOR: reports: section, Dilation and currettage, Other Meds/Allgy - Home Medications Home Medications: Ambulatory Orders Medication Instructions Recorded Confirmed Aspirin [Adult Low Dose Aspirin EC] 81 mg PO DAILY 02/29/16 07/13/21 Felodipine [Felodipine ER] 10 mg PO DAILY 02/29/16 07/13/21 Multivitamin [Multiple Vitamins] 1 each PO DAILY 12/23/18 07/13/21 clonazePAM [Clonazepam] 0.5 mg PO TID PRN 12/12/19 07/13/21 metFORMIN [Glucophage] 500 mg PO BIDWM 12/12/19 07/13/21 Lactobacillus Combination No.4 1 each PO DAILY 07/01/21 07/13/21 [Probiotic] Losartan [Cozaar] 50 mg PO DAILY 07/01/21 07/13/21 Rosuvastatin Calcium [Crestor] 20 mg PO DAILY 07/01/21 07/13/21 - Allergies Allergies/Adverse Reactions: Allergies Allergy/AdvReac Type Severity Reaction Status Date / Time No Known Drug Allergies Allergy Verified 06/01/20 21:49 Review of Systems - Constitutional Constitutional: denies: Fatigue, Fever, Chills - Eyes Eyes: denies: Pain - Ears, Nose & Throat Ears, Nose & Throat: denies: Ear pain, Nosebleeds - Cardiovascular Cariovascular: denies: Irregular heart rate, Palpitations, Chest pain, Syncope - Respiratory Respiratory: denies: Cough, Sputum production, SOB at rest - Gastrointestinal Gastrointestinal: denies: Abdominal pain, Diarrhea, Nausea, Vomiting - Genitourinary Genitourinary: denies: Dysuria - Musculoskeletal Musculoskeletal: reports: Limited range of motion - Integumentary Integumentary: denies: Rash - Neurological Neurological: denies: Focal weakness, Headache, Dizziness, Numbness, Seizures, Incoordination, Slurred speech - Psychiatric Psychiatric: denies: Depression Exam - Vital Signs Vital Signs: Vital Signs x48h Temp Pulse Pulse Resp BP BP Pulse Ox 07/13/21 12:50 75 139/64 H 94 07/13/21 12:45 83 93 07/13/21 12:30 88 105/82 H 94 07/13/21 12:15 85 108/84 H 92 07/13/21 12:00 82 132/64 H 91 L 07/13/21 11:59 36.4 C L 81 20 126/66 91 L 07/13/21 11:35 36.9 C 69 18 116/70 94 07/13/21 11:30 36.6 C 82 19 132/65 H 95 07/13/21 11:25 36.9 C 93 18 129/66 95 07/13/21 11:20 36.9 C 84 17 124/69 95 07/13/21 11:15 36.9 C 83 18 127/66 95 07/13/21 11:10 36.9 C 86 18 133/70 H 95 07/13/21 11:05 37.3 C 85 16 132/72 H 96 07/13/21 06:28 36.6 C 81 18 178/89 H 95 - Physical Exam General Appearance: positive: No acute distress, Alert. negative: Lethargic Eyes Bilateral: positive: Normal inspection, PERRL, No lid inflammation ENT: positive: ENT inspection nml, No signs of dehydration. negative: Purulent nasal drainage Neck: positive: Nml inspection, Trachea midline. negative: Tracheal deviation Respiratory: positive: Chest non-tender, No respiratory distress, Breath sounds nml. negative: Wheezes, Rales Cardiovascular: positive: Regular rate & rhythm, Systolic murmur. negative: Tachycardia, Bradycardia Peripheral Pulses: positive: 2+ Abdomen: positive: Non-tender, Nml bowel sounds, No distention. negative: Tenderness Back: positive: Nml inspection Skin: positive: Color nml, Warm, Dry. negative: Cyanosis Extremities: positive: Non-tender, Other (intact neurovascular examination at distal of left lower extremity). negative: Pedal edema, Calf tenderness Neurologic/Psychiatric: positive: Oriented x3, Sensation nml, Mood/affect nml. negative: Weakness, Sensory loss, Facial droop, Slurred/abnml speech, Depressed mood/affect Conclusion/Plan - Problem List (1) Diabetes Conclusion/Plan: Patient has a glucose 201, slight elevated anion gap. we will change intravenous IV fluids to the normal saline. Patient take Metformin for her diabetic, will resume, we will start the sliding scale, we will check A1c, we will start with hypoglycemia protocol (2) Status post left knee replacement Conclusion/Plan: Patient just finished total left the knee replacement. We will continue follow- up with orthopedic surgeon. Aspirin 81 mg twice daily for DVT prophylaxis. Continue pain control, continue PT/OT evaluation and treatment. Soria catheter will remove at early on tomorrow. Continue vital signs and engineer geophysical laboratory. Expected surgeon plan to DC patient on tomorrow. (3) HTN (hypertension) Conclusion/Plan: Patient is hemodynamic stable, will resume home blood pressure medicine, continue vital signs monitor (4) HLD (hyperlipidemia) Conclusion/Plan: We will resume home statin - Lab Results Lab results reviewed: Yes Fish Bones: 07/13/21 13:50 07/13/21 13:50
[2021-07-13 13:54] LABS: BASOPHILS # (AUTO) 0.1 10^3/uL (0.0-0.1); BASOPHILS % (AUTO) 0.3 %; EOSINOPHILS % (AUTO) 0.1 %; HCT - HEMATOCRIT 38.4 % (37.0-47.0); HGB - HEMOGLOBIN 12.8 g/dL (12.0-16.0); LYMPHOCYTES # (AUTO) 1.8 10^3/uL (1.5-3.5); LYMPHOCYTES % (AUTO) 10.1 %; MEAN CORPUSCULAR HEMOGLOBIN 30.9 pg (27.0-31.0); MEAN CORPUSCULAR HGB CONC 33.3 g/dL (32.0-36.0); MEAN CORPUSCULAR VOLUME 92.8 fL (81.0-99.0); MEAN PLATELET VOLUME 9.9 fL (7.9-10.8); MONOCYTES # (AUTO) 0.3 10^3/uL (0.0-1.0); MONOCYTES % (AUTO) 1.5 %; NEUTROPHILS # (AUTO) 15.3 10^3/uL (1.5-6.6); NEUTROPHILS % (AUTO) 87.2 %; PLT - PLATELET COUNT 334 10^3/uL (130-450); RED BLOOD COUNT 4.14 10^6/uL (4.20-5.40); RED CELL DISTRIBUTION WIDTH 12.4 % (12.0-15.0); WHITE BLOOD COUNT 17.6 x10^3/uL (4.8-10.8)
[2021-07-13 14:03] LABS: CALCIUM 9.2 mg/dL (8.5-10.3); CREATININE 0.7 mg/dL (0.4-1.0); POTASSIUM 4.3 mmol/L (3.5-5.0)
[2021-07-13] MEDS: ceFAZolin 2 GM in SODIUM CHLORIDE 0.9% 100ML 100 ML IV SCH ×2 (14:44→21:45)
[2021-07-13] MEDS ORDERED: SODIUM CHLORIDE 0.9% 1,000 ML IV SCH (15:00)
--- NOTE | 2021-07-13 16:45 | ANESTHESIA POST OP EVALUATION ---
Anesthesia Post Eval - Post Anesthesia Eval Vitals: Last Vital Signs Temp 36.4 C L 07/13/21 16:04 Pulse 74 07/13/21 16:04 Resp 18 07/13/21 16:04 BP 132/63 H 07/13/21 16:04 Pulse Ox 93 07/13/21 16:04 CV Function Including HR & BP: Stable Pain Control: Satisfactory Nausea & Vomiting: Negative Mental Status: Baseline Respiratory Status: Airway Patent Hydration Status: Satisfactory Anesthesia Complications: None
[2021-07-13] MEDS: INSULIN ASPART 300 UNIT/3 ML PEN SUBQ SCH ×2 (17:02→21:36)
[2021-07-13] MEDS: metFORMIN 500 MG TABLET PO SCH (17:02)
[2021-07-13 20:29] LABS: ESTIMATED AVERAGE GLUCOSE 160 mg/dL (70-100); HEMOGLOBIN A1c% 7.2 % (4.27-6.07)
[2021-07-13] MEDS ORDERED: ATORVASTATIN 40 MG TABLET PO SCH (21:00)
[2021-07-13] MEDS: ASPIRIN EC 81 MG TABLET PO SCH (21:34)
[2021-07-14] MEDS: ACETAMINOPHEN 500 MG TABLET PO SCH ×2 (00:13→06:10)
[2021-07-14] MEDS: oxyCODONE 5 MG TABLET PO PRN ×4 (00:13→12:25)
[2021-07-14] MEDS: SODIUM CHLORIDE FLUSH 0.9% 10 ML SYRINGE IVP SCH ×2 (00:14→08:32)
[2021-07-14 06:16] LABS: BASOPHILS % (AUTO) 0.3 %; EOSINOPHILS % (AUTO) 0.2 %; HCT - HEMATOCRIT 32.5 % (37.0-47.0); HGB - HEMOGLOBIN 10.6 g/dL (12.0-16.0); LYMPHOCYTES # (AUTO) 1.9 10^3/uL (1.5-3.5); LYMPHOCYTES % (AUTO) 12.4 %; MEAN CORPUSCULAR HGB CONC 32.6 g/dL (32.0-36.0); MONOCYTES # (AUTO) 1.1 10^3/uL (0.0-1.0); NEUTROPHILS # (AUTO) 11.9 10^3/uL (1.5-6.6); NEUTROPHILS % (AUTO) 79.3 %; PLT - PLATELET COUNT 267 10^3/uL (130-450); RED BLOOD COUNT 3.42 10^6/uL (4.20-5.40); RED CELL DISTRIBUTION WIDTH 12.6 % (12.0-15.0)
[2021-07-14 06:25] LABS: CALCIUM 8.7 mg/dL (8.5-10.3); CREATININE 0.6 mg/dL (0.4-1.0); POTASSIUM 4.5 mmol/L (3.5-5.0)
[2021-07-14 07:19] LABS: BILIRUBIN,URINE NEGATIVE (NEGATIVE); GLUCOSE, URINE (UA) NEGATIVE (NEGATIVE); KETONES,URINE (UA) NEGATIVE (NEGATIVE); LEUKOCYTE ESTERASE, URINE NEGATIVE (NEGATIVE); NITRITE,URINE NEGATIVE (NEGATIVE); OCCULT BLOOD,URINE LARGE (NEGATIVE); PH,URINE 5.5 PH (5.0-7.5); PROTEIN,URINE 30 mg/dL (NEGATIVE); UROBILINOGEN,URINE 0.2 (NORMAL) E.U./dL (NORMAL)
[2021-07-14 07:31] LABS: CLARITY,URINE HAZY (CLEAR)
[2021-07-14 07:35] LABS: BACTERIA,URINE Few /HPF (None Seen); MUCUS,URINE Moderate Strands; RBC,URINE TNTC /HPF (0-5); SQUAMOUS EPITHELIAL CELL,UR RARE Squamous (<= Few); WBC,URINE 0-3 /HPF (0-5)
--- NOTE | 2021-07-14 07:45 | PROVIDER PROGRESS NOTE ---
Subjective - General Procedure Date: 07/13/21 Post Op Days: 1 Procedure Performed: Left TKA for osteoarthritis - Review of Systems Wound/Incisions: positive: Dressing dry and intact General: negative: Fever, Chills Pulmonary: positive: No symptoms Gastrointestinal: negative: Nausea, Vomiting Musculoskeletal: positive: Joint pain, Joint swelling - Other Other Information/Narrative: Patient is a 70-year-old female who is postop day 1 left TKA performed by Dr Edin Terrell at [facility] [place] on 07/13/2021. Patient has a history of diabetes, hypertension hyperlipidemia and osteoarthritis. Patient denies signs or symptoms of fever, pain is well controlled. Patient is weightbearing as tolerated with walker. Comanaged by hospitalist for medical management Objective - Patient Data Reviewed Vital Signs: Yes Vital Signs: Vital Signs x48h Temp Pulse Resp BP Pulse Ox 07/14/21 07:25 36.6 C 69 18 134/63 H 96 07/14/21 05:30 36.5 C 70 16 154/63 H 98 07/14/21 00:10 36.5 C 70 16 148/64 H 94 Weight: Weight 07/12/21 07/13/21 07/14/21 23:59 23:59 23:59 Weight (kg) 114.2 kg Intake & Output: Intake and Output Totals x24h 07/12/21 07/13/21 07/14/21 23:59 23:59 23:59 Intake Total 700 1250 Output Total 1475 175 Balance -775 1075 - Lab Results Lab Results: 07/14/21 06:06 07/14/21 06:06 Other Lab Results: Lab Results x24hrs 07/14/21 07/14/21 07/14/21 Range/Units 07:22 06:06 06:06 WBC 15.0 H (4.8-10.8) x10^3/uL RBC 3.42 L (4.20-5.40) 10^6/uL Hgb 10.6 L (12.0-16.0) g/dL Hct 32.5 L (37.0-47.0) % MCV 95.0 (81.0-99.0) fL MCH 31.0 (27.0-31.0) pg MCHC 32.6 (32.0-36.0) g/dL RDW 12.6 (12.0-15.0) % Plt Count 267 (130-450) 10^3/uL MPV 10.0 (7.9-10.8) fL Neut # (Auto) 11.9 H (1.5-6.6) 10^3/uL Lymph # (Auto) 1.9 (1.5-3.5) 10^3/uL Graves # (Auto) 1.1 H (0.0-1.0) 10^3/uL Eos # (Auto) 0.0 (0.0-0.7) 10^3/uL Baso # (Auto) 0.0 (0.0-0.1) 10^3/uL Absolute Nucleated RBC 0.00 x10^3/uL Nucleated RBC % 0.0 /100WBC Sodium 136 (135-145) mmol/L Potassium 4.5 (3.5-5.0) mmol/L Chloride 102 (101-111) mmol/L Carbon Dioxide 26 (21-32) mmol/L Anion Gap 8.0 (6-13) BUN 20 (6-20) mg/dL Creatinine 0.6 (0.4-1.0) mg/dL Estimated GFR (MDRD) 99 (>89) Glucose 192 H (70-100) mg/dL POC Whole Bld Glucose 155 H (70 - 100) mg/dL Estimat Average Glucose (70-100) mg/dL Hemoglobin A1c % (4.27-6.07) % Calcium 8.7 (8.5-10.3) mg/dL Urine Color Urine Clarity (CLEAR) Urine pH (5.0-7.5) PH Ur Specific [place] (1.002-1.030) Urine Protein (NEGATIVE) mg/dL Urine Glucose (UA) (NEGATIVE) mg/dL Urine Ketones (NEGATIVE) mg/dL Urine Occult Blood (NEGATIVE) Urine Nitrite (NEGATIVE) Urine Bilirubin (NEGATIVE) Urine Urobilinogen (NORMAL) E.U./dL Ur Leukocyte Esterase (NEGATIVE) Urine RBC (0-5) /HPF Urine WBC (0-5) /HPF Ur Squamous Epith Cells (<= Few) Urine Bacteria (None Seen) /HPF Urine Mucus Urine Culture Comments 07/14/21 07/13/21 07/13/21 Range/Units 06:00 21:08 16:23 WBC (4.8-10.8) x10^3/uL RBC (4.20-5.40) 10^6/uL Hgb (12.0-16.0) g/dL Hct (37.0-47.0) % MCV (81.0-99.0) fL MCH (27.0-31.0) pg MCHC (32.0-36.0) g/dL RDW (12.0-15.0) % Plt Count (130-450) 10^3/uL MPV (7.9-10.8) fL Neut # (Auto) (1.5-6.6) 10^3/uL Lymph # (Auto) (1.5-3.5) 10^3/uL Graves # (Auto) (0.0-1.0) 10^3/uL Eos # (Auto) (0.0-0.7) 10^3/uL Baso # (Auto) (0.0-0.1) 10^3/uL Absolute Nucleated RBC x10^3/uL Nucleated RBC % /100WBC Sodium (135-145) mmol/L Potassium (3.5-5.0) mmol/L Chloride (101-111) mmol/L Carbon Dioxide (21-32) mmol/L Anion Gap (6-13) BUN (6-20) mg/dL Creatinine (0.4-1.0) mg/dL Estimated GFR (MDRD) (>89) Glucose (70-100) mg/dL POC Whole Bld Glucose 189 H 177 H (70 - 100) mg/dL Estimat Average Glucose (70-100) mg/dL Hemoglobin A1c % (4.27-6.07) % Calcium (8.5-10.3) mg/dL Urine Color YELLOW Urine Clarity HAZY (CLEAR) Urine pH 5.5 (5.0-7.5) PH Ur Specific [place] >=1.030 H (1.002-1.030) Urine Protein 30 H (NEGATIVE) mg/dL Urine Glucose (UA) NEGATIVE (NEGATIVE) mg/dL Urine Ketones NEGATIVE (NEGATIVE) mg/dL Urine Occult Blood LARGE H (NEGATIVE) Urine Nitrite NEGATIVE (NEGATIVE) Urine Bilirubin NEGATIVE (NEGATIVE) Urine Urobilinogen 0.2 (NORMAL) (NORMAL) E.U./dL Ur Leukocyte Esterase NEGATIVE (NEGATIVE) Urine RBC TNTC H (0-5) /HPF Urine WBC 0-3 (0-5) /HPF Ur Squamous Epith Cells RARE Squamous (<= Few) Urine Bacteria Few (None Seen) /HPF Urine Mucus Moderate Strands Urine Culture Comments NOT INDICATED 07/13/21 07/13/21 07/13/21 Range/Units 13:50 13:50 13:50 WBC 17.6 H (4.8-10.8) x10^3/uL RBC 4.14 L (4.20-5.40) 10^6/uL Hgb 12.8 (12.0-16.0) g/dL Hct 38.4 (37.0-47.0) % MCV 92.8 (81.0-99.0) fL MCH 30.9 (27.0-31.0) pg MCHC 33.3 (32.0-36.0) g/dL RDW 12.4 (12.0-15.0) % Plt Count 334 (130-450) 10^3/uL MPV 9.9 (7.9-10.8) fL Neut # (Auto) 15.3 H (1.5-6.6) 10^3/uL Lymph # (Auto) 1.8 (1.5-3.5) 10^3/uL Graves # (Auto) 0.3 (0.0-1.0) 10^3/uL Eos # (Auto) 0.0 (0.0-0.7) 10^3/uL Baso # (Auto) 0.1 (0.0-0.1) 10^3/uL Absolute Nucleated RBC 0.00 x10^3/uL Nucleated RBC % 0.0 /100WBC Sodium 136 (135-145) mmol/L Potassium 4.3 (3.5-5.0) mmol/L Chloride 99 L (101-111) mmol/L Carbon Dioxide 23 (21-32) mmol/L Anion Gap 14.0 H (6-13) BUN 13 (6-20) mg/dL Creatinine 0.7 (0.4-1.0) mg/dL Estimated GFR (MDRD) 83 L (>89) Glucose 201 H (70-100) mg/dL POC Whole Bld Glucose (70 - 100) mg/dL Estimat Average Glucose 160 H (70-100) mg/dL Hemoglobin A1c % 7.2 H (4.27-6.07) % Calcium 9.2 (8.5-10.3) mg/dL Urine Color Urine Clarity (CLEAR) Urine pH (5.0-7.5) PH Ur Specific [place] (1.002-1.030) Urine Protein (NEGATIVE) mg/dL Urine Glucose (UA) (NEGATIVE) mg/dL Urine Ketones (NEGATIVE) mg/dL Urine Occult Blood (NEGATIVE) Urine Nitrite (NEGATIVE) Urine Bilirubin (NEGATIVE) Urine Urobilinogen (NORMAL) E.U./dL Ur Leukocyte Esterase (NEGATIVE) Urine RBC (0-5) /HPF Urine WBC (0-5) /HPF Ur Squamous Epith Cells (<= Few) Urine Bacteria (None Seen) /HPF Urine Mucus Urine Culture Comments 07/13/21 07/13/21 Range/Units 11:48 09:50 WBC (4.8-10.8) x10^3/uL RBC (4.20-5.40) 10^6/uL Hgb (12.0-16.0) g/dL Hct (37.0-47.0) % MCV (81.0-99.0) fL MCH (27.0-31.0) pg MCHC (32.0-36.0) g/dL RDW (12.0-15.0) % Plt Count (130-450) 10^3/uL MPV (7.9-10.8) fL Neut # (Auto) (1.5-6.6) 10^3/uL Lymph # (Auto) (1.5-3.5) 10^3/uL Graves # (Auto) (0.0-1.0) 10^3/uL Eos # (Auto) (0.0-0.7) 10^3/uL Baso # (Auto) (0.0-0.1) 10^3/uL Absolute Nucleated RBC x10^3/uL Nucleated RBC % /100WBC Sodium (135-145) mmol/L Potassium (3.5-5.0) mmol/L Chloride (101-111) mmol/L Carbon Dioxide (21-32) mmol/L Anion Gap (6-13) BUN (6-20) mg/dL Creatinine (0.4-1.0) mg/dL Estimated GFR (MDRD) (>89) Glucose (70-100) mg/dL POC Whole Bld Glucose 165 H 139 H (70 - 100) mg/dL Estimat Average Glucose (70-100) mg/dL Hemoglobin A1c % (4.27-6.07) % Calcium (8.5-10.3) mg/dL Urine Color Urine Clarity (CLEAR) Urine pH (5.0-7.5) PH Ur Specific [place] (1.002-1.030) Urine Protein (NEGATIVE) mg/dL Urine Glucose (UA) (NEGATIVE) mg/dL Urine Ketones (NEGATIVE) mg/dL Urine Occult Blood (NEGATIVE) Urine Nitrite (NEGATIVE) Urine Bilirubin (NEGATIVE) Urine Urobilinogen (NORMAL) E.U./dL Ur Leukocyte Esterase (NEGATIVE) Urine RBC (0-5) /HPF Urine WBC (0-5) /HPF Ur Squamous Epith Cells (<= Few) Urine Bacteria (None Seen) /HPF Urine Mucus Urine Culture Comments - Imaging Results Radiology Imaging: positive: EMP read indepedently (Postop films of left knee shows status post total knee replacement with good anatomical alignment no apparent hardware loosening) - Current Medications Current Medications: Current Medications Generic Name Dose Route Start Last Admin Trade Name Freq PRN Reason Stop Dose Admin Acetaminophen 1,000 mg 07/13/21 12:00 07/14/21 06:10 Acetaminophen 500 Mg Tablet PO 1,000 mg Q6HR MAURICE Administration Alcohol 1 amp 07/13/21 09:00 07/13/21 21:34 Ethyl Alcohol 62% Swab Ampule NICOLE 1 amp BID MAURICE Administration Aspirin 81 mg 07/13/21 21:00 07/13/21 21:34 Aspirin Ec 81 Mg Tablet PO 81 mg BID MAURICE Administration Atorvastatin Calcium 40 mg 07/13/21 21:00 07/13/21 21:34 Atorvastatin 40 Mg Tablet PO 40 mg QPM MAURICE Administration Hydromorphone HCl 1 mg 07/13/21 07:11 07/13/21 21:38 Hydromorphone 1 Mg/Ml Carpuject IVP 1 mg Q2HR PRN Administration Breakthrough Pain Insulin Aspart 1 - 5 unit 07/13/21 17:00 07/13/21 21:36 Insulin Aspart 300 Unit/3 Ml Pen SUBQ 2 unit 0800,1200,1700,2100 MAURICE Administration Protocol Metformin HCl 500 mg 07/13/21 17:00 07/13/21 17:02 Metformin 500 Mg Tablet PO 500 mg BIDWM MAURICE Administration Oxycodone HCl 5 mg 07/13/21 07:11 07/14/21 04:26 Oxycodone 5 Mg Tablet PO 5 mg Q6HR PRN Administration PAIN Sodium Chloride 10 ml 07/13/21 09:00 07/14/21 00:14 Sodium Chloride Flush 0.9% 10 Ml Syringe IVP Not Given 0100,0900,1700 MAURICE - Physical Exam Wound/Incisions: positive: Dressing dry and intact General Appearance: positive: Alert Respiratory: positive: No respiratory distress Skin: positive: Color nml, No rash, Warm, Dry Extremities: positive: Joint swelling Neurologic/Psychiatric: positive: Oriented x3 ABX Reporting Has patient been on IV antibiotics over the past 48 hours?: Yes Impression/Plan - Problem List Problem List: Patient is a 70-year-old female who is postop day 1 left TKA she has a history of diabetes, hypertension, hyperlipidemia and osteoarthritis. Patient is weigh tbearing as tolerated in front wheel walker. Patient is cleared for discharge from Orthopedic surgical standpoint. She is to receive PT/OT sessions today and we anticipate her being deemed safe to discharge home so she can ambulate up to the chair up to the bathroom safely. Patient pain control regimen includes scheduled tramadol, acetaminophen and Aleve with 5 mg of oxycodone for breakthrough pain. Patient is to take 81 mg of aspirin twice daily for 6 weeks for DVT prophylaxis. Patient will follow-up in orthopedic clinic next week for her initial postop she is to keep her dressing on until then.
[2021-07-14] MEDS: metFORMIN 500 MG TABLET PO SCH (07:48)
[2021-07-14] MEDS: INSULIN ASPART 300 UNIT/3 ML PEN SUBQ SCH ×2 (07:49→11:40)
--- NOTE | 2021-07-14 07:57 | Discharge Plan ---
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 You can weight-bear as tolerated utilizing a front wheel walker. Your pain management plan is scheduled 2 tablets of Aleve or 440 mg in the a.m. and 2 tablets of Aleve in the p.m Regardless of pain severity. Take scheduled Tylenol 650 mg every 4 hours up to 4 times a day regardless of pain severity.Take 50 mg of tramadol scheduled every 6 hours while waking not to exceed 4 tablets or 200 mg in a 24-hour period Regardless of severity of pain. For breakthrough pain greater than 8 out of 10 you can take 1 tablet 5 mg oxycodone. Recommend taking a tablet of 5 mg oxycodone about an hour before bed to promote sleep. Take 81 mg of aspirin twice a day for 6 weeks for DVT prophylaxis. Keep your postop dressing on until first postop visit in the orthopedic clinic in [place]. Do not shower do not drive until cleared by surgeon. If you have a sudden increase in pain increase redness and swelling of the exposed skin around the knee along with drainage through the dressing please call our orthopedic clinic during business hours at [phone]. These may be signs of infection if outside of business hours seek immediate care. No Smoking: If you smoke, Please STOP! Call for help. Follow-up with: Homero Raya DO [Primary Care Provider] -
[2021-07-14] MEDS ORDERED: MULTIVITAMIN TABLET PO SCH (08:00)
[2021-07-14 08:29] LABS: ABSOLUTE RETICS # AUTO 0.066 10^6/uL (0.020-0.110); RED BLOOD COUNT 3.43 10^6/uL (4.20-5.40); RETICULOCYTE COUNT % (AUTO) 1.93 % (0.5-2.3)
[2021-07-14] MEDS: ASPIRIN EC 81 MG TABLET PO SCH (08:32)
[2021-07-14] MEDS: ethyl alcohoL 62% SWAB AMPULE NAS SCH (08:32)
[2021-07-14 08:38] LABS: FERRITIN 78.5 ng/mL (11.0-306.8)
[2021-07-14 08:47] LABS: % IRON SATURATION 10 % (20-50); IRON 39 ug/dL (28-170); TOTAL IRON BINDING CAPACITY 372 ug/dL (250-450); TRANSFERRIN 266 mg/dL (192-382)
[2021-07-14] MEDS ORDERED: LOSARTAN 50 MG TABLET PO SCH (09:00)
[2021-07-14] MEDS ORDERED: SACCHAROMYCES BOULARDII 250 MG CAPSULE PO SCH (09:00)
[2021-07-14] MEDS ORDERED: amLODIPine 5 MG TABLET PO SCH ×3 (09:00)
[2021-07-14] MEDS ORDERED: ASPIRIN EC 81 MG TABLET PO SCH (09:00)
[2021-07-14 11:40] VITALS: BP 138/73
== END 2021-07-14 13:54 | disposition home or self-care (01) ==
LOC: SDS 06:06 → MS2 11:45 → SDS 07-14 13:54
PROVIDERS: ATTEND Orthopaedic Surgery
DX: M17.12 Unilateral primary osteoarthritis, left knee (principal); I10 Essential (primary) hypertension; E11.9 Type 2 diabetes mellitus without complications; J45.909 Unspecified asthma, uncomplicated; E78.5 Hyperlipidemia, unspecified; R01.1 Cardiac murmur, unspecified; F41.9 Anxiety disorder, unspecified; F41.0 Panic disorder [episodic paroxysmal anxiety]; R35.1 Nocturia; H54.7 Unspecified visual loss; E66.01 Morbid (severe) obesity due to excess calories; Z68.41 Body mass index [BMI] 40.0-44.9, adult; Z79.82 Long term (current) use of aspirin; Z79.84 Long term (current) use of oral hypoglycemic drugs; Z87.891 Personal history of nicotine dependence
CPT/HCPCS: 27447; 36415; 73560; 80048; 81001; 82607; 82728; 83036; 83540; 83615; 84466; 85025; 85045; 97110; 97162; 97165; 97530; A9270; C1713; J0690; J1170; J2795; J3370; J7120; 85610; 87086

== ENCOUNTER 2021-09-20 08:00 | Outpatient (CLI) | payer MEDICARE, OTHER ==
--- NOTE | 2021-09-20 17:16 | XRAY Report ---
PROCEDURE: Knee 4 View LT INDICATIONS: L KNEE POST-OP CARE TECHNIQUE: 4 views of the left knee(s) were acquired. COMPARISON: X-ray knee 07/13/2021 FINDINGS: Bones: No fractures or dislocations. No suspicious bony lesions. Left knee arthroplasty is stable. Hardware is intact without evidence of periprosthetic fracture or loosening. The right knee demonstr ates mild medial and lateral compartment narrowing. Soft tissues: No joint effusion. No suspicious soft tissue calcifications. IMPRESSION: Stable appearance of arthroplasty as above. Reviewed by: Marylu Wyatt MD on 09/20/2021 5:15 PM PST Approved by: Marylu Wyatt MD on 09/20/2021 5:15 PM PST Station ID: [id number]
== END 2021-09-20 23:59 | disposition home or self-care (01) ==
LOC: DI.N 08:00
PROVIDERS: ATTEND Physician Assistant
DX: M17.12 Unilateral primary osteoarthritis, left knee (principal); Z48.89 Encounter for other specified surgical aftercare; Z96.652 Presence of left artificial knee joint

== ENCOUNTER 2021-11-22 08:15 | Outpatient (CLI) | payer MEDICARE, OTHER ==
--- NOTE | 2021-11-23 10:17 | Mammography Report ---
BILATERAL DIGITAL SCREENING MAMMOGRAM 3D/2D: 11/22/2021 CLINICAL: Routine screening. Comparison is made to exams dated: 12/11/2018 ultrasound, 11/29/2018 mammogram, and 04/10/2016 mammogram - [facility]. The tissue of both breasts is predominantly fatty. No significant masses, calcifications, or other findings are seen in either breast. There has been no significant interval change. IMPRESSION: NEGATIVE There is no mammographic evidence of malignancy. A 1 year screening mammogram is recommended. This exam was interpreted at Station ID: [id number]. NOTE: For mammograms, a report in lay terms will be sent to the patient. Approximately 15% of breast malignancies will not be visualized mammographically. In the management of a palpable breast mass, a negative mammogram must not discourage biopsy of a clinically suspicious lesion. Electronically Signed By: Faustino Calabrese M.D. ar/penrad:11/22/2021 12:38:05 ACR BI-RADS Category 1: Negative 3341F PARENCHYMAL PATTERN: (F) - The breast(s) demonstrate(s) diffuse fatty replacement. BI-RADS CATEGORY: (1) - 1 RECOMMENDATION: (ANNUAL) - Recommend routine annual screening mammography. [id number] 1 year screening LATERALITY: (B)
== END 2021-11-22 08:16 | disposition home or self-care (01) ==
LOC: DI.N 08:15
DX: Z12.31 Encounter for screening mammogram for malignant neoplasm of breast (principal)

== ENCOUNTER 2021-12-21 07:06 | Outpatient (CLI) | payer MEDICARE, OTHER ==
[2021-12-21 07:14] LABS: ABNORMAL LYMPHS % (MANUAL) 0 %; BAND NEUTROPHILS % (MANUAL) 0 %
[2021-12-21 12:12] LABS: BASOPHILS % (AUTO) 0.6 %; EOSINOPHILS % (AUTO) 5.9 %; HCT - HEMATOCRIT 38.9 % (37.0-47.0); HGB - HEMOGLOBIN 12.6 g/dL (12.0-16.0); LYMPHOCYTES % (AUTO) 28.3 %; MEAN CORPUSCULAR HEMOGLOBIN 28.8 pg (27.0-31.0); MEAN CORPUSCULAR HGB CONC 32.4 g/dL (32.0-36.0); MEAN PLATELET VOLUME 11.2 fL (7.9-10.8); MONOCYTES % (AUTO) 6.9 %; NEUTROPHILS % (AUTO) 58.1 %; PLT - PLATELET COUNT 289 10^3/uL (130-450); RED BLOOD COUNT 4.37 10^6/uL (4.20-5.40); RED CELL DISTRIBUTION WIDTH 14.9 % (12.0-15.0)
[2021-12-21 12:46] LABS: ALBUMIN 4.3 g/dL (3.2-5.5); ALBUMIN/GLOBULIN RATIO 1.3 (1.0-2.2); ALKALINE PHOSPHATASE 65 IU/L (42-121); ALT ALANINE AMINOTRANSFERASE 18 IU/L (10-60); AST ASPARTATE AMINOTRANSFERASE 13 IU/L (10-42); BILIRUBIN,TOTAL 1.1 mg/dL (0.2-1.0); BUN - BLOOD UREA NITROGEN 24 mg/dL (6-20); CALCIUM 9.2 mg/dL (8.5-10.3); CARBON DIOXIDE - CO2 28 mmol/L (21-32); CHLORIDE 102 mmol/L (101-111); CHOL/HDL RATIO 2.9 (<4.4); CHOLESTEROL 116 mg/dL; CREATININE 0.6 mg/dL (0.4-1.0); GFR - MDRD 99 (>89); GLUCOSE 119 mg/dL (70-100); HDL CHOLESTEROL 40 mg/dL; LDL CHOLESTEROL,CALCULATED 59 mg/dL; LDL/HDL RATIO 1.5 (<4.4); POTASSIUM 4.1 mmol/L (3.5-5.0); SODIUM 140 mmol/L (135-145); TOTAL PROTEIN 7.5 g/dL (6.7-8.2); TRIGLYCERIDES 83 mg/dL; VLDL CHOLESTEROL 17 mg/dL
[2021-12-21 13:14] LABS: ESTIMATED AVERAGE GLUCOSE 146 mg/dL (70-100); HEMOGLOBIN A1c% 6.7 % (4.27-6.07)
[2021-12-21 13:37] LABS: LYMPHOCYTES % (MANUAL) 23 %; NEUTROPHILS # (MANUAL) 6.2 10^3/uL (1.5-6.6)
[2021-12-21 13:38] LABS: EOSINOPHILS # (MANUAL) 0.3 10^3/uL (0-0.7); LYMPHOCYTES # (MANUAL) 2.1 10^3/uL (1.5-3.5); MONOCYTES # (MANUAL) 0.5 10^3/uL (0.0-1.0); RBC MORPHOLOGY (MULTIPLE) NORMAL APPEARANCE (NORMAL)
[2021-12-21 13:39] LABS: DIFFERENTIAL COMMENT MANUAL DIFFERENTIAL; PLATELET ESTIMATE, MANUAL NORMAL (130-450,000) (NORMAL); PLATELET MORPHOLOGY NORMAL APPEARANCE (NORMAL); WBC MORPHOLOGY (MULTIPLE) NORMAL APPEARANCE (NORMAL)
== END 2021-12-21 07:07 | disposition home or self-care (01) ==
LOC: LAB.N 07:06
PROVIDERS: ATTEND Family Medicine
DX: E78.5 Hyperlipidemia, unspecified (principal); D72.829 Elevated white blood cell count, unspecified; E11.9 Type 2 diabetes mellitus without complications
CPT/HCPCS: 36415; 80053; 80061; 83036; 83721; 85025

== ENCOUNTER 2022-02-10 10:33 | Outpatient (CLI) | payer MEDICARE, OTHER ==
--- NOTE | 2022-02-10 11:28 | DEXA Report ---
PROCEDURE: Dexa Spine and/or Hip INDICATIONS: POST MENOPAUSAL TECHNIQUE: Dual energy x-ray absorptiometry (DXA) was performed on a [employer] System. Regions measur ed are the AP Spine, femoral neck, and if needed forearm. COMPARISON: None. FINDINGS: Lumbar Spine: Bone Mineral Density 1.282 g/cm/cm,T score 0.9, normal Left Hip: Bone Mineral Density 0.915 g/cm/cm,T score -0.7, normal Left Femoral Neck: Bone Mineral Density 0.78 g/cm/cm, T score -1.9, osteopenia (T score greater or equal to -1.0: NORMAL) (T score from -1.1 to -2.4: OSTEOPENIA) (T score less than or equal to -2.5 to: OSTEOPOROSIS) Impression: Bone mineral density as detailed above. Patients with diagnosis of osteoporosis or osteopenia should have regular bone mineral density assess ment. For those eligible for Medicare, routine testing is allowed once every 2 years. Testing frequ ency can be increased for patients who have rapidly progressing disease or for those who are receivin g medical therapy to restore bone mass. Reviewed by: Kashmir Gutierrez MD on 02/10/2022 11:27 AM PDT Approved by: Kashmir Gutierrez MD on 02/10/2022 11:27 AM PDT Station ID: [id number]
== END 2022-02-10 10:34 | disposition home or self-care (01) ==
LOC: DI 10:33
PROVIDERS: ATTEND Physician Assistant
DX: M85.88 Other specified disorders of bone density and structure, other site (principal); Z78.0 Asymptomatic menopausal state

== ENCOUNTER 2022-07-04 07:06 | Outpatient (CLI) | payer MEDICARE, OTHER ==
[2022-07-04 13:24] LABS: ESTIMATED AVERAGE GLUCOSE 160 mg/dL (70-100); HEMOGLOBIN A1c% 7.2 % (4.27-6.07)
== END 2022-07-04 07:07 | disposition home or self-care (01) ==
LOC: LAB.N 07:06
PROVIDERS: ATTEND Physician Assistant
DX: E11.9 Type 2 diabetes mellitus without complications (principal)
CPT/HCPCS: 36415; 83036

== ENCOUNTER 2022-08-29 07:15 | Outpatient (CLI) | payer MEDICARE, OTHER ==
[2022-08-29 12:55] LABS: CALCIUM 9.7 mg/dL (8.5-10.3); CREATININE 0.7 mg/dL (0.4-1.0); POTASSIUM 4.3 mmol/L (3.5-5.0)
[2022-08-29 13:11] LABS: CREATININE,URINE 198.4 mg/dL; MICROALBUM/CREATININE RATIO,UR 11.1 ug/mg (<30.0); MICROALBUMIN,URINE 2.2 mg/dL (0-300.0)
== END 2022-08-29 07:16 | disposition home or self-care (01) ==
LOC: LAB.N 07:15
PROVIDERS: ATTEND Physician Assistant
DX: E11.9 Type 2 diabetes mellitus without complications (principal)
CPT/HCPCS: 36415; 80048; 82043; 82570

== ENCOUNTER 2022-09-11 07:40 | Outpatient (CLI) | payer MEDICARE, OTHER ==
--- NOTE | 2022-09-11 09:24 | XRAY Report ---
PROCEDURE: Finger(s) RT INDICATIONS: R THUMB PX TECHNIQUE: AP hand, 2 views of the first finger(s) acquired. COMPARISON: None FINDINGS: Bones: No fractures or dislocations. There are mild scattered arthritic changes including slight asy mmetric joint space loss at the MCP joints and prominent joint space loss and spurring at the fifth D IP joint No suspicious bony lesions. Soft tissues: No suspicious soft tissue calcifications. No radiodense foreign bodies. IMPRESSION: 1. No suspicious findings in the right first digit. 2. Scattered arthritic changes. Reviewed by: Tram Titus MD on 09/11/2022 9:22 AM PST Approved by: Tram Titus MD on 09/11/2022 9:22 AM PST Station ID: [id number]
== END 2022-09-11 07:41 | disposition home or self-care (01) ==
LOC: DI.N 07:40
PROVIDERS: ATTEND Physician Assistant
DX: M19.041 Primary osteoarthritis, right hand (principal)

== ENCOUNTER 2022-10-04 07:00 | Outpatient (CLI) | payer MEDICARE, OTHER ==
--- NOTE | 2022-10-04 09:39 | XRAY Report ---
PROCEDURE: Chest 2 View X-Ray INDICATIONS: COUGH TECHNIQUE: 2 views of the chest were acquired. COMPARISON: None FINDINGS: Surgical changes and devices: None. Lungs and pleura: No pleural effusions or pneumothorax. Mild increased bronchovascular markings in b ilateral hilar region are seen with bronchial wall thickening. No focal infiltrate. Mediastinum: Mediastinal contours are normal. Heart size is normal. Bones and chest wall: No suspicious bony abnormalities. Soft tissues appear unremarkable. IMPRESSION: Ingestion of mild reactive airway disease such as bronchitis or asthma. No focal infiltrate, pleural effusion or pneumothorax. Reviewed by: Vince Greene MD on 10/04/2022 9:38 AM PST Approved by: Vince Greene MD on 10/04/2022 9:38 AM PST Station ID: [id number]
== END 2022-10-04 23:59 | disposition home or self-care (01) ==
LOC: DI.N 07:00
PROVIDERS: ATTEND Physician Assistant
DX: R05.9 Cough, unspecified (principal)

== ENCOUNTER 2022-12-01 07:11 | Outpatient (CLI) | payer OTHER ==
[2022-12-01 13:35] LABS: ESTIMATED AVERAGE GLUCOSE 189 mg/dL (70-100); HEMOGLOBIN A1c% 8.2 % (4.27-6.07)
== END 2022-12-01 07:12 | disposition home or self-care (01) ==
LOC: LAB.N 07:11
PROVIDERS: ATTEND Physician Assistant
DX: E11.9 Type 2 diabetes mellitus without complications (principal)
CPT/HCPCS: 36415; 83036

== ENCOUNTER 2023-02-27 07:06 | Outpatient (CLI) | payer OTHER ==
[2023-02-27 12:00] LABS: BASOPHILS # (AUTO) 0.1 10^3/uL (0.0-0.1); BASOPHILS % (AUTO) 0.5 %; EOSINOPHILS # (AUTO) 0.6 10^3/uL (0.0-0.7); EOSINOPHILS % (AUTO) 5.4 %; HCT - HEMATOCRIT 36.6 % (37.0-47.0); HGB - HEMOGLOBIN 11.9 g/dL (12.0-16.0); LYMPHOCYTES % (AUTO) 29.1 %; MEAN CORPUSCULAR HEMOGLOBIN 30.7 pg (27.0-31.0); MEAN CORPUSCULAR HGB CONC 32.5 g/dL (32.0-36.0); MEAN CORPUSCULAR VOLUME 94.6 fL (81.0-99.0); MEAN PLATELET VOLUME 10.6 fL (7.9-10.8); MONOCYTES # (AUTO) 0.6 10^3/uL (0.0-1.0); MONOCYTES % (AUTO) 6.3 %; NEUTROPHILS # (AUTO) 5.9 10^3/uL (1.5-6.6); NEUTROPHILS % (AUTO) 58.2 %; PLT - PLATELET COUNT 326 10^3/uL (130-450); RED BLOOD COUNT 3.87 10^6/uL (4.20-5.40); RED CELL DISTRIBUTION WIDTH 12.8 % (12.0-15.0); WHITE BLOOD COUNT 10.2 x10^3/uL (4.8-10.8)
[2023-02-27 12:03] LABS: ALBUMIN 4.1 g/dL (3.2-5.5); ALBUMIN/GLOBULIN RATIO 1.2 (1.0-2.2); ALKALINE PHOSPHATASE 60 IU/L (42-121); ALT ALANINE AMINOTRANSFERASE 25 IU/L (10-60); AST ASPARTATE AMINOTRANSFERASE 19 IU/L (10-42); BILIRUBIN,TOTAL 0.7 mg/dL (0.2-1.0); BUN - BLOOD UREA NITROGEN 25 mg/dL (6-20); CALCIUM 9.5 mg/dL (8.5-10.3); CARBON DIOXIDE - CO2 26 mmol/L (21-32); CHLORIDE 99 mmol/L (101-111); CHOL/HDL RATIO 3.2 (<4.4); CHOLESTEROL 119 mg/dL; CREATININE 0.8 mg/dL (0.4-1.0); GFR - MDRD 71 (>89); GLUCOSE 137 mg/dL (70-100); HDL CHOLESTEROL 37 mg/dL; LDL CHOLESTEROL,CALCULATED 54 mg/dL; LDL/HDL RATIO 1.5 (<4.4); POTASSIUM 3.9 mmol/L (3.5-5.0); SODIUM 139 mmol/L (135-145); TOTAL PROTEIN 7.6 g/dL (6.7-8.2); TRIGLYCERIDES 142 mg/dL; VLDL CHOLESTEROL 28 mg/dL
[2023-02-27 12:12] LABS: ESTIMATED AVERAGE GLUCOSE 148 mg/dL (70-100); HEMOGLOBIN A1c% 6.8 % (4.27-6.07)
[2023-02-27 12:26] LABS: MICROALBUM/CREATININE RATIO,UR 15.4 ug/mg (<30.0); MICROALBUMIN,URINE 2.6 mg/dL (0-300.0)
== END 2023-02-27 07:07 | disposition home or self-care (01) ==
LOC: LAB.N 07:06
PROVIDERS: ATTEND Physician Assistant
DX: E11.9 Type 2 diabetes mellitus without complications (principal)
CPT/HCPCS: 36415; 80053; 80061; 82043; 82570; 83036; 83721; 85025

== ENCOUNTER 2023-05-29 07:04 | Outpatient (CLI) | payer OTHER ==
[2023-05-29 12:44] LABS: ESTIMATED AVERAGE GLUCOSE 160 mg/dL (70-100); HEMOGLOBIN A1c% 7.2 % (4.27-6.07)
== END 2023-05-29 07:05 | disposition home or self-care (01) ==
LOC: LAB.N 07:04
PROVIDERS: ATTEND Physician Assistant
DX: E11.9 Type 2 diabetes mellitus without complications (principal)
CPT/HCPCS: 36415; 83036

== ENCOUNTER 2023-07-10 08:54 | Outpatient (CLI) | payer MEDICARE ==
--- NOTE | 2023-07-11 10:23 | Mammography Report ---
BILATERAL DIGITAL SCREENING MAMMOGRAM 3D/2D: 07/10/2023 CLINICAL: Routine screening. Comparison is made to exams dated: 11/22/2021 mammogram, 12/11/2018 ultrasound, 11/29/2018 mammogram, 03/23 mammogram, 08/05/2014 mammogram, and 08/16/2012 mammogram - [facility]. There are scattered areas of fibroglandular density in both breasts (category b / 25%-50% glandular t issue). Positioning is limited due to patient factors. No significant masses, calcifications, or other findin gs are seen in either breast. IMPRESSION: NEGATIVE No mammographic evidence of malignancy. A 1 year screening mammogram is recommended. Based on the Tyrer Cuzick model (a risk assessment model) the patients lifetime risk is 5.2% and her 10 year risk is 3.9%. According to the ACR, ACS, and NCCN guidelines, an annual breast MRI exam brian g with mammogram is recommended if the patients lifetime risk is 20% or greater. This exam was interpreted at Station ID: [id number]. NOTE: For mammograms, a report in lay terms will be sent to the patient. Approximately 15% of breast malignancies will not be visualized mammographically. In the management of a palpable breast mass, a negative mammogram must not discourage biopsy of a clinically suspicious lesion. Electronically Signed By: Almaz Patricia M.D. esb/:07/10/2023 17:52:23 letter sent: No_Letter ACR BI-RADS Category 1: Negative 3341F PARENCHYMAL PATTERN: (A) - The breast(s) demonstrate(s) scattered fibroglandular densities. BI-RADS CATEGORY: (1) - 1 Mammogram [id number] 1 year screening LATERALITY: (B)
== END 2023-07-10 08:55 | disposition home or self-care (01) ==
LOC: DI.N 08:54
DX: Z12.31 Encounter for screening mammogram for malignant neoplasm of breast (principal)

== ENCOUNTER 2023-11-28 07:05 | Outpatient (CLI) | payer MEDICARE ==
[2023-11-28 12:27] LABS: CALCIUM 9.8 mg/dL (8.5-10.3); CREATININE 0.9 mg/dL (0.6-1.3)
[2023-11-28 12:33] LABS: ESTIMATED AVERAGE GLUCOSE 171 mg/dL (70-100); HEMOGLOBIN A1c% 7.6 % (4.27-6.07)
== END 2023-11-28 07:06 | disposition home or self-care (01) ==
LOC: LAB.N 07:05
PROVIDERS: ATTEND Physician Assistant
DX: E11.42 Type 2 diabetes mellitus with diabetic polyneuropathy (principal)
CPT/HCPCS: 36415; 80048; 83036

== ENCOUNTER 2024-05-29 07:04 | Outpatient (CLI) | payer MEDICARE ==
[2024-05-29 11:49] LABS: BASOPHILS # (AUTO) 0.1 10^3/uL (0.0-0.1); BASOPHILS % (AUTO) 0.7 %; EOSINOPHILS # (AUTO) 0.3 10^3/uL (0.0-0.7); EOSINOPHILS % (AUTO) 3.8 %; HCT - HEMATOCRIT 35.4 % (37.0-47.0); HGB - HEMOGLOBIN 11.2 g/dL (12.0-16.0); LYMPHOCYTES # (AUTO) 2.5 10^3/uL (1.5-3.5); LYMPHOCYTES % (AUTO) 32.8 %; MEAN CORPUSCULAR HEMOGLOBIN 30.3 pg (27.0-31.0); MEAN CORPUSCULAR HGB CONC 31.6 g/dL (32.0-36.0); MEAN CORPUSCULAR VOLUME 95.7 fL (81.0-99.0); MEAN PLATELET VOLUME 11.6 fL (7.9-10.8); MONOCYTES # (AUTO) 0.5 10^3/uL (0.0-1.0); MONOCYTES % (AUTO) 6.9 %; NEUTROPHILS # (AUTO) 4.2 10^3/uL (1.5-6.6); NEUTROPHILS % (AUTO) 55.5 %; PLT - PLATELET COUNT 252 10^3/uL (130-450); RED CELL DISTRIBUTION WIDTH 12.9 % (12.0-15.0); WHITE BLOOD COUNT 7.6 x10^3/uL (4.8-10.8)
[2024-05-29 12:03] LABS: ALBUMIN 4.3 g/dL (3.2-5.5); ALBUMIN/GLOBULIN RATIO 1.6 (1.0-2.2); ALKALINE PHOSPHATASE 63 IU/L (42-121); ALT ALANINE AMINOTRANSFERASE 14 IU/L (10-60); AST ASPARTATE AMINOTRANSFERASE 15 IU/L (10-42); BILIRUBIN,TOTAL 0.8 mg/dL (0.2-1.0); BUN - BLOOD UREA NITROGEN 20 mg/dL (6-20); CALCIUM 9.9 mg/dL (8.5-10.3); CARBON DIOXIDE - CO2 30 mmol/L (21-32); CHLORIDE 102 mmol/L (101-111); CHOL/HDL RATIO 3.3 (<4.4); CHOLESTEROL 135 mg/dL; CREATININE 0.9 mg/dL (0.6-1.3); GFR - MDRD 61 (>89); GLUCOSE 137 mg/dL (74-104); HDL CHOLESTEROL 41 mg/dL; LDL CHOLESTEROL,CALCULATED 63 mg/dL; LDL/HDL RATIO 1.5 (<4.4); SODIUM 138 mmol/L (135-145); TRIGLYCERIDES 153 mg/dL; VLDL CHOLESTEROL 31 mg/dL
[2024-05-29 12:09] LABS: CREATININE,URINE 193.5 mg/dL; MICROALBUM/CREATININE RATIO,UR 7.8 ug/mg (<30.0); MICROALBUMIN,URINE 1.5 mg/dL
[2024-05-29 12:24] LABS: ESTIMATED AVERAGE GLUCOSE 160 mg/dL (70-100); HEMOGLOBIN A1c% 7.2 % (4.27-6.07)
== END 2024-05-29 07:05 | disposition home or self-care (01) ==
LOC: LAB.N 07:04
PROVIDERS: ATTEND Physician Assistant
DX: I10 Essential (primary) hypertension (principal); E11.42 Type 2 diabetes mellitus with diabetic polyneuropathy; E78.5 Hyperlipidemia, unspecified
CPT/HCPCS: 36415; 80053; 80061; 82043; 82570; 83036; 83721; 85025

== ENCOUNTER 2024-07-11 08:24 | Outpatient (CLI) | payer MEDICARE ==
--- NOTE | 2024-07-11 09:13 | Ultrasound Report ---
PROCEDURE: Duplex Ext Veins Left INDICATIONS: LOCALIZED SWELLING ON LOWER LEG, LEFT TECHNIQUE: Real-time imaging, as well as color and pulse Doppler interrogation, were performed of the lower extr emity deep veins from the inguinal ligament to the popliteal fossa. Attempted visualization of the ca lf veins was performed. COMPARISON: None. FINDINGS: The deep veins are normally compressible, and free of intraluminal thrombus. Color and pu lse Doppler demonstrate normal phasic intraluminal flow. There is normal augmentation response to di stal compression maneuver. IMPRESSION: No deep venous thrombosis of the visualized lower extremity. Reviewed by: Varinder Negrete MD on 07/11/2024 9:12 AM PDT Approved by: Varinder Negrete MD on 07/11/2024 9:12 AM PDT Station ID: [id number]
== END 2024-07-11 08:25 | disposition home or self-care (01) ==
LOC: DI 08:24
PROVIDERS: ATTEND Physician Assistant
DX: R22.42 Localized swelling, mass and lump, left lower limb (principal)